=== PATIENT | female | born 1930 | race Caucasian/White ===

== ENCOUNTER 2016-12-31 07:18 | Day surgery (SDC) | payer MEDICARE, OTHER ==
[2016-12-31] MEDS ORDERED: Dexamethasone 4 MG/ML 5 ML MDV IVPUSH ONE (07:19)
[2016-12-31] MEDS ORDERED: fentaNYL 100 MCG/2 ML SDV IV ONE (07:19)
[2016-12-31] MEDS ORDERED: Propofol 200 MG/20 ML SDV IV ONE (07:19)
[2016-12-31] MEDS ORDERED: Neostigmine Methylsulfate 10 MG/10 ML MDV IVPUSH ONE (07:19)
[2016-12-31] MEDS ORDERED: Ondansetron 4 MG/2 ML SDV IVPUSH ONE (07:19)
[2016-12-31] MEDS ORDERED: Rocuronium 50 MG/5 ML Vial IV ONE (07:19)
[2016-12-31] MEDS ORDERED: ePHEDrine 50 MG/ML SDV IV ONE (07:19)
[2016-12-31] MEDS ORDERED: Glycopyrrolate 0.2 MG/ML 5 ML MDV IV ONE (07:19)
[2016-12-31] MEDS ORDERED: Succinylcholine 200 MG/10 ML MDV IV ONE (07:19)
[2016-12-31] MEDS ORDERED: ceFAZolin 1 GM in Sodium Chloride 0.9% 50 ML IV ONE (08:30)
[2016-12-31] MEDS: Lactated Ringers 1,000 ML IV SCH ×3 (09:02→19:46)
[2016-12-31] MEDS ORDERED: Bupivacaine 0.5% 30 ML SDV INJECT ONE (09:52)
[2016-12-31] MEDS ORDERED: Lidocaine 1% with EPINEPHrine 1:100,000 20 ML MDV INJECT ONE (09:53)
[2016-12-31] MEDS ORDERED: Ondansetron 4 MG/2 ML SDV IVPUSH PRN (10:21)
[2016-12-31] MEDS ORDERED: Nitroglycerin 0.4 MG Tab.SL SL PRN (10:23)
[2016-12-31] MEDS ORDERED: Morphine 2 MG/ML Syringe IVPUSH PRN (10:24)
--- NOTE | 2016-12-31 10:26 | PCM.OPNOTE ---
- General Post-Op/Procedure Note Date of Surgery/Procedure: 12/31/16 Operative Procedure(s): lap cholecystectomy Findings: critical view obtained. Pre Op Diagnosis: gallstones and polyp Post-Op Diagnosis: Same Anesthesia Technique: General ET Tube, Local (9 ml 1 % lido with epi 0.5% buvipicaine) Primary Surgeon: August Samayoa Anesthesia Provider: Levar Griffiths Pathology: gallbladder Complications: None Condition: Good Free Text/Narrative:: see dictation.
[2016-12-31] MEDS ORDERED: fentaNYL 100 MCG/2 ML SDV IVPUSH PRN (10:29)
[2016-12-31] MEDS ORDERED: Morphine 10 MG/ML Syringe IVPUSH PRN (10:29)
[2016-12-31] MEDS ORDERED: Lactated Ringers 1,000 ML IV SCH (10:30)
[2016-12-31] MEDS ORDERED: Sodium Chloride 0.9% 10 ML Syringe FLUSH PRN (11:07)
[2016-12-31] MEDS: Acetaminophen/HYDROcodone 325-5 MG Tab PO PRN ×3 (14:30→23:36)
--- NOTE | 2016-12-31 17:48 | OR ---
DATE OF OPERATION: 12/31/2016 SURGEON: August Samayoa MD PROCEDURE PERFORMED: Laparoscopic cholecystectomy. PREOPERATIVE DIAGNOSIS: Symptomatic cholelithiasis and possible gallbladder polyp. POSTOPERATIVE DIAGNOSIS: Symptomatic cholelithiasis and possible gallbladder polyp. INDICATIONS FOR PROCEDURE: This is an 86-year-old white female, who has been having some intermittent pain, primarily in the back, in the area of the shoulder blade. She recently underwent an ultrasound which demonstrated cholelithiasis as well as a possible gallbladder polyp. Pain appeared to be colicky in nature consistent with biliary colic, and she was offered and accepted a laparoscopic cholecystectomy. INTRAOPERATIVE FINDINGS: A critical view was obtained of the gallbladder. Approximately 9 mL of 1:1 mixture of 1% lidocaine with epinephrine and 0.5% bupivacaine was used. DESCRIPTION OF OPERATION: After an excellent general anesthetic was administered, the patient was prepped and draped in the usual sterile manner. Local was used to infiltrate the area below the umbilicus. A vertical midline incision was carried out, and 2 stay sutures of 0 Vicryl were placed on either side of the midline fascia, which was then elevated. The midline fascia was then incised, and the abdominal cavity was entered. A 10.5 mm Jase trocar was inserted. The patient's abdomen was insufflated to 15 mmHg using carbon dioxide, and under direct visualization, three 5 mm ports were placed; one in the midline epigastrium and two below the mid the right costal margin, and proximal level of the anterior and midclavicular line. The gallbladder was retracted in a cephalad fashion. The infundibulum was grasped, and after taking down some attached omentum, the cystic duct and cystic artery were dissected free. Two clips were placed proximally on the cystic duct and one distally. After obtaining our critical view, 2 clips were placed proximally on the cystic artery and 1 distally, and there was a thin blood vessel that also received a small clip. These structures were then divided and the gallbladder was dissected free from the gallbladder fossa using electrocautery. The specimen was passed into the bag and delivered out through the umbilical port. The area was irrigated with some bleeding points on the gallbladder fossa controlled with electrocautery. After assuring excellent hemostasis, the trocars were removed under direct visualization to ensure that there was no bleeding in the area of the trocars. After releasing the pneumoperitoneum, the umbilical defect was closed with a [id number] 0 Vicryl, and the 2 stay sutures were tied to each other. The skin was closed with interrupted 4-0 subcu Vicryl. Steri-Strips were applied. Needle, sponge, and instrument counts were reported as correct. The patient was taken to recovery room in good condition. /[id number] /MODL
[2016-12-31] MEDS ORDERED: OXYBUTYNIN 5 MG PO SCH (21:00)
[2016-12-31] MEDS ORDERED: Metoprolol Tartrate 25 MG Tab*PTOM PO SCH (21:00)
[2017-01-01] MEDS: Acetaminophen/HYDROcodone 325-5 MG Tab PO PRN ×2 (03:05→07:18)
--- NOTE | 2017-01-01 07:12 | PCM.SURGPN ---
- General Info Date of Service: 01/01/17 POD#: 1 Functional Status: Reports: Pain Controlled, Ambulating, Urinating - Review of Systems Pulmonary: Reports: No Symptoms Cardiovascular: Reports: No Symptoms Gastrointestinal: Reports: Abdominal Pain - Patient Data Vitals - Most Recent: Last Vital Signs Temp 36.4 C 01/01/17 04:00 Pulse 74 01/01/17 04:00 Resp 18 01/01/17 04:00 BP 168/90 H 01/01/17 04:00 Pulse Ox 92 L 01/01/17 04:00 Weight - Most Recent: 65.771 kg I&O - Last 24 Hours: Intake & Output 12/31/16 01/01/17 01/01/17 22:59 06:59 14:59 Intake Total 1243 619 Output Total 250 Balance 993 619 Med Orders - Current: Current Medications Hydrocodone Bitart/Acetaminophen (Anatone 325-5 Mg) 1 tab PO Q4H PRN PRN Reason: Pain (mild 1-3) Last Admin: 01/01/17 03:05 Dose: 1 tab Lactated Ringer's (Ringers, Lactated) 1,000 mls @ 125 mls/hr IV ASDIRECTED [facility] Last Admin: 12/31/16 19:46 Dose: 125 mls/hr Lactated Ringer's (Ringers, Lactated) 1,000 mls @ 0 mls/hr IV ASDIRECTED [facility] PRN Reason: KVO Metoprolol Tartrate (Lopressor) 25 mg PO BID [facility] Last Admin: 12/31/16 21:04 Dose: 25 mg Morphine Sulfate (Morphine) 1 mg IVPUSH Q1H PRN PRN Reason: Pain Nitroglycerin (Nitrostat) 0.4 mg SL ASDIRECTED PRN PRN Reason: Chest Pain Non-Formulary Medication (Atorvastatin [Lipitor]) 40 mg PO DAILY [facility] Ondansetron HCl (Zofran) 4 mg IVPUSH Q6H PRN PRN Reason: Nausea/Vomiting Oxybutynin Chloride (Oxybutynin) 5 mg PO BID [facility] Last Admin: 12/31/16 21:04 Dose: 5 mg Sodium Chloride (Saline Flush) 10 ml FLUSH ASDIRECTED PRN PRN Reason: IV Use Last Admin: 12/31/16 11:15 Dose: 10 ml Discontinued Medications Bupivacaine HCl (Marcaine 0.5%) 12 ml INJECT .STK-MED ONE Stop: 12/31/16 09:53 Last Admin: 12/31/16 09:52 Dose: 12 ml Fentanyl (Sublimaze) 50 mcg IVPUSH Q5M PRN PRN Reason: Pain (severe 7-10) Cefazolin Sodium 1 gm/ Sodium (Chloride) 50 mls @ 200 mls/hr IV ONETIME ONE Stop: 12/31/16 08:44 Last Admin: 12/31/16 09:11 Dose: 200 mls/hr Lidocaine/Epinephrine (Xylocaine 1% With Epinephrine 1:100,000) 12 ml INJECT .STK-MED ONE Stop: 12/31/16 09:54 Last Admin: 12/31/16 09:53 Dose: 12 ml Morphine Sulfate (Morphine) 1 mg IVPUSH Q5M PRN PRN Reason: Pain (moderate 4-6) - Exam Wound/Incisions: Dressing Dry and Intact Lungs: Clear to Auscultation, Normal Respiratory Effort Cardiovascular: Regular Rate, Regular Rhythm GI/Abdominal Exam: Normal Bowel Sounds, Soft - Problem List & Annotations (1) S/P laparoscopic cholecystectomy SNOMED Code(s): 049118693, [id number], 255560641 Code(s): Z90.49 - ACQUIRED ABSENCE OF OTHER SPECIFIED PARTS OF DIGESTIVE TRACT Status: Acute Current Visit: Yes - Problem List Review Problem List Initiated/Reviewed/Updated: Yes - My Orders Last 24 Hours: Active Orders 24 hr Category Date Time Status Patient Status [ADT] Routine ADT 12/31/16 07:15 Ordered Communication Order [RC] ASDIRECTED Care 12/31/16 10:29 Active Cooling Warming Measures [RC] ASDIRECTED Care 12/31/16 10:29 Active Notify Provider [RC] PRN Care 12/31/16 10:29 Active Oxygen Therapy [RC] ASDIRECTED Care 12/31/16 10:29 Active Oxygen Therapy [RC] PRN Care 12/31/16 10:22 Active RT Incentive Spirometry [RC] Q2HWA Care 12/31/16 10:21 Active Ready for Discharge [RC] PER UNIT ROUTINE Care 01/01/17 07:11 Ordered Up With Assistance [RC] ASDIRECTED Care 12/31/16 10:21 Active Vital Signs [RC] 00,04,08,12,16,20 Care 12/31/16 10:21 Active Vital Signs [RC] PER UNIT ROUTINE Care 12/31/16 10:29 Active Clear Liquid Diet [DIET] Diet 12/31/16 Lunch Ordered Acetaminophen/HYDROcodone [Anatone 325-5 MG] Med 12/31/16 10:21 Active 1 tab PO Q4H PRN Lactated Ringers [Ringers, Lactated] 1,000 ml Med 12/31/16 07:15 Active IV ASDIRECTED Lactated Ringers [Ringers, Lactated] 1,000 ml Med 12/31/16 10:30 Active IV ASDIRECTED Metoprolol Tartrate [Lopressor] Med 12/31/16 21:00 Active 25 mg PO BID Morphine Med 12/31/16 10:24 Active 1 mg IVPUSH Q1H PRN Nitroglycerin [Nitrostat] Med 12/31/16 10:23 Active 0.4 mg SL ASDIRECTED PRN Ondansetron [Zofran] Med 12/31/16 10:21 Active 4 mg IVPUSH Q6H PRN Oxybutynin Med 12/31/16 21:00 Active 5 mg PO BID Sodium Chloride 0.9% [Saline Flush] Med 12/31/16 11:07 Active 10 ml FLUSH ASDIRECTED PRN atorvaSTATin [Lipitor] Med 01/01/17 09:00 Active 40 mg PO DAILY Convert IV to Peripheral Lock [Convert IV to Saline Oth 01/01/17 02:40 Ordered Lock] [OM.PC] Routine Patient May [OM.PC] Click to Edit Oth 12/31/16 10:29 Ordered Peripheral IV Insertion Adult [OM.PC] Routine Oth 12/31/16 07:15 Ordered Sequential Compression Device [OM.PC] Routine Oth 12/31/16 07:15 Ordered Medication Orders Hydrocodone Bitart/Acetaminophen (Anatone 325-5 Mg) 1 tab PO Q4H PRN PRN Reason: Pain (mild 1-3) Last Admin: 01/01/17 03:05 Dose: 1 tab Admin: 12/31/16 23:36 Dose: 1 tab Admin: 12/31/16 18:55 Dose: 1 tab Admin: 12/31/16 14:30 Dose: 1 tab Lactated Ringer's (Ringers, Lactated) 1,000 mls @ 125 mls/hr IV ASDIRECTED [facility] Last Admin: 12/31/16 19:46 Dose: 125 mls/hr Infusion: 12/31/16 19:06 Dose: 125 mls/hr Admin: 12/31/16 11:06 Dose: 125 mls/hr Infusion: 12/31/16 11:06 Dose: 125 mls/hr Admin: 12/31/16 09:02 Dose: 125 mls/hr Lactated Ringer's (Ringers, Lactated) 1,000 mls @ 0 mls/hr IV ASDIRECTED [facility] PRN Reason: KVO Metoprolol Tartrate (Lopressor) 25 mg PO BID [facility] Last Admin: 12/31/16 21:04 Dose: 25 mg Morphine Sulfate (Morphine) 1 mg IVPUSH Q1H PRN PRN Reason: Pain Nitroglycerin (Nitrostat) 0.4 mg SL ASDIRECTED PRN PRN Reason: Chest Pain Non-Formulary Medication (Atorvastatin [Lipitor]) 40 mg PO DAILY [facility] Ondansetron HCl (Zofran) 4 mg IVPUSH Q6H PRN PRN Reason: Nausea/Vomiting Oxybutynin Chloride (Oxybutynin) 5 mg PO BID [facility] Last Admin: 12/31/16 21:04 Dose: 5 mg Sodium Chloride (Saline Flush) 10 ml FLUSH ASDIRECTED PRN PRN Reason: IV Use Last Admin: 12/31/16 11:15 Dose: 10 ml - Assessment Assessment (Free Text/Narrative):: ready for discharge. - Plan Plan (Free Text/Narrative):: see d/c plan
[2017-01-01 07:39] VITALS: BP 155/95
[2017-01-01] MEDS ORDERED: Non-Formulary Medication 1 Each (Atorvastatin [Lipitor] 40 MG) PO SCH (09:00)
== END 2017-01-01 11:05 ==
LOC: FB.SDS 07:18 → UNDOFXSDCACCOM 10:50 → FB.SDS 10:50 → FB.MS 10:50 → FB.SDS 01-01 11:05
PROVIDERS: ATTEND Surgery
DX: K80.10 Calculus of gallbladder with chronic cholecystitis without obstruction (principal); Z88.6 Allergy status to analgesic agent; M81.0 Age-related osteoporosis without current pathological fracture; I25.2 Old myocardial infarction; Z96.651 Presence of right artificial knee joint; Z90.710 Acquired absence of both cervix and uterus; Z98.890 Other specified postprocedural states; Z79.899 Other long term (current) drug therapy
CPT/HCPCS: 00790; 47562; 88304; 94150; A9270; J0330; J0690; J1100; J2405; J2704; J2710; J3010; J7050; J7120

== ENCOUNTER 2018-10-03 19:49 | Observation (INO) | payer MEDICARE, OTHER ==
[2018-10-03] MEDS ORDERED: Metoprolol Succinate 25 MG Tab.ER PO ONE (20:35)
[2018-10-03] MEDS ORDERED: Sodium Chloride 0.9% 10 ML Syringe FLUSH PRN (20:37)
--- NOTE | 2018-10-03 20:43 | EDM.PDOC ---
ED HPI GENERAL MEDICAL PROBLEM - General Chief Complaint: Cardiovascular Problem Stated Complaint: CHEST PAIN,SOB Time Seen by Provider: 10/03/18 20:25 Source of Information: Reports: Patient, Family, Old Records History Limitations: Reports: No Limitations - History of Present Illness INITIAL COMMENTS - FREE TEXT/NARRATIVE: Megha comes into [facility] ED with a recent hx of anterior retrosternal chest pain episodes x 3 since September 21. Sxs were spontaneous, retrosternal, with radiation around the R side of thorax to the back. Pain is characterized as a pressure sensation, with cool sweats, some SOB, and fatigue. There has been no lt headiness, nausea, belching, palpitations, or LOC. She took TNG x 3 for first episode, TNG x 3 for second episode 4 days ago, and TNG x 2 after dinner this evening with resolution of sxs. She has not communicated with her PCP during this interval. Megha also reports at least 3 episodes of similar pain over the past year that was managed with a single dose of TNG. Of interest is a PMH of CAD, status post PTCA x 2 stents about 4 years ago at [facility]. She has been med compliant, and is on Plavix. - Related Data Allergies Allergy/AdvReac Type Severity Reaction Status Date / Time NSAIDS (Non-Steroidal Allergy UNKNOWN Verified 12/31/16 07:51 Anti-Inflamma Home Meds: Home Meds Ascorbic Acid [Vitamin C] 500 mg PO DAILY 07/29/13 [History] Calcium Carbonate/Vitamin D3 [Caltrate 600+D 1500 MG-400 Units] 1 tab PO DAILY 07/29/13 [History] Clopidogrel [Plavix] 75 mg PO DAILY 07/29/13 [History] Metoprolol Tartrate [Lopressor] 25 mg PO BID 07/29/13 [History] Multivitamin [Multivitamins] 1 cap PO DAILY 07/29/13 [History] atorvaSTATin [Lipitor] 40 mg PO DAILY 07/29/13 [History] Aspirin 325 mg PO DAILY 02/06/15 [History] Nitroglycerin [Nitrostat] 0.4 mg SL ASDIRECTED PRN 02/06/15 [History] Cholecalciferol (Vitamin D3) [Vitamin D3] 1,000 unit PO DAILY 10/23/15 [History] Oxybutynin 5 mg PO BID 10/23/15 [History] Acetaminophen/HYDROcodone [[place] 325-5 MG] 1 tab PO Q4H PRN #30 tablet 01/01/17 [Rx] Past Medical History HEENT History: Reports: Cataract Other HEENT History: Cataract surgery this year, 2015 Cardiovascular History: Reports: Angina, Blood Clots/VTE/DVT, Heart Failure, High Cholesterol, SC, Prior Cardiac Arrest, PTCA, Stents Respiratory History: Reports: None Gastrointestinal History: Reports: None Genitourinary History: Reports: UTI, Recurrent Other Genitourinary History: over active bladder history of UTI Other [employer] CON[employer]CT History: HYSTERECTOMY Other Musculoskeletal History: back pain with curved spine... 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 Neurological History: Reports: CVA Hematologic History: Reports: None Immunologic History: Reports: None - Infectious Disease History Infectious Disease History: Reports: Chicken Pox, Measles, Scarlet Fever - Past Surgical History HEENT Surgical History: Reports: Cataract Surgery Cardiovascular Surgical History: Reports: Coronary Artery Stent GI Surgical History: Reports: None Female Surgical History: Reports: Hysterectomy Endocrine Surgical History: Reports: None Neurological Surgical History: Reports: None Musculoskeletal Surgical History: Reports: Knee Replacement Oncologic Surgical History: Reports: None Dermatological Surgical History: Reports: None Social & Family History - Family History HEENT: Reports: None Cardiac: Reports: None Respiratory: Reports: None GI: Reports: None : Reports: None Psychiatric: Reports: None Endocrine/Metabolic: Reports: None Hematologic: Reports: None Oncologic: Reports: Pancreatic, Other (See Below) Other Oncologic Family History: Mother. - Caffeine Use Caffeine Use: Reports: Coffee ED ROS GENERAL - Review of Systems Review Of Systems: See Below Constitutional: Reports: Fatigue (with chest pain episodes ) HEENT: Reports: No Symptoms Respiratory: Reports: No Symptoms Cardiovascular: Reports: Chest Pain Endocrine: Reports: No Symptoms GI/Abdominal: Reports: No Symptoms : Reports: No Symptoms Musculoskeletal: Reports: No Symptoms Skin: Reports: No Symptoms Neurological: Reports: No Symptoms Psychiatric: Reports: No Symptoms Hematologic/Lymphatic: Reports: No Symptoms Immunologic: Reports: No Symptoms ED EXAM, GENERAL - Physical Exam Exam: See Below Exam Limited By: No Limitations General Appearance: Alert, WD/WN, No Apparent Distress Eye Exam: Bilateral Eye: EOMI, Normal Inspection, PERRL Ears: Normal External Exam Nose: Normal Inspection Throat/Mouth: Normal Inspection, Normal Oropharynx, Other (some ecchymoses from oral surgery) Head: Normocephalic Neck: Normal Inspection, Supple, Non-Tender Respiratory/Chest: No Respiratory Distress, Lungs Clear, No Accessory Muscle Use , Chest Non-Tender Cardiovascular: Normal Peripheral Pulses, Regular Rate, Rhythm, No Edema, No JVD , No Murmur GI/Abdominal: Normal Bowel Sounds, Soft, Non-Tender, No Organomegaly, No Distention, No Mass (Female) Exam: Deferred Rectal (Female) Exam: Deferred Back Exam: Normal Inspection Extremities: Normal Inspection Neurological: Alert, Oriented, CN II-XII Intact, Normal Cognition, No Motor/ Sensory Deficits Psychiatric: Normal Affect, Normal Mood Skin Exam: Warm, Intact, Normal Color Lymphatic: No Adenopathy Course - Vital Signs Text/Narrative:: Following assessment, Megha was advised to take an additional Metoprolol 25 mg for elevated BP pending results of screening labs: chest x ray no change, ekg noted NSR with LBBB, CBC and CMP baseline, DDimer satisfactory, Troponin I < 0.017. I discussed case with Shruthi Caputo [employer] Stocker and Osiel Rosario Hospitalist at [facility] who suggested serial Troponins and call back for follow up in the am. Patient and son are in agreement with the COA. Last Recorded V/S: Last Vital Signs Temp Pulse 68 10/03/18 20:48 Resp BP 174/95 H 10/03/18 20:48 Pulse Ox - Orders/Labs/Meds Orders: Active Orders 24 hr Category Date Time Status EKG Documentation Completion [RC] ASDIRECTED Care 10/03/18 20:37 Active Chest 1V Frontal [CR] Stat Exams 10/03/18 20:36 Taken Sodium Chloride 0.9% [Saline Flush] Med 10/03/18 20:37 Active 10 ml FLUSH ASDIRECTED PRN Peripheral IV Insertion Adult [OM.PC] Routine Oth 10/03/18 20:37 Ordered EKG 12 Lead [EK] Routine Ther 10/03/18 20:36 Ordered Medication Orders Sodium Chloride (Saline Flush) 10 ml FLUSH ASDIRECTED PRN PRN Reason: Keep Vein Open Last Admin: 10/03/18 21:11 Dose: 10 ml Labs: Laboratory Tests 10/03/18 10/03/1819 Range/Units 20:46 20:46 20:46 WBC 4.8 (4.5-12.0) X10-3/uL RBC 4.20 (3.23-5.20) x10(6)uL Hgb 13.4 (11.5-15.5) g/dL Hct 40.3 (30.0-51.3) % MCV 96.1 H (80-96) fL MCH 31.9 (27.7-33.6) pg MCHC 33.2 (32.2-35.4) g/dL RDW 12.8 (11.5-15.5) % Plt Count 105 L (125-369) X10(3)uL MPV 8.3 (7.4-10.4) fL Neut % (Auto) 55.2 (46-82) % Lymph % (Auto) 25.5 (13-37) % Tompkins % (Auto) 15.6 H (4-12) % Eos % (Auto) 3 (1.0-5.0) % Baso % (Auto) 1 (0-2) % Neut # (Auto) 2.7 (1.6-8.3) # Lymph # (Auto) 1.2 (0.6-5.0) # Tompkins # (Auto) 0.8 (0.0-1.3) # Eos # (Auto) 0.1 (0.0-0.8) # Baso # (Auto) 0.0 (0.0-0.2) # D-Dimer, Quantitative 0.27 (0.0-0.59) mg/LFEU Sodium 138 (135-145) mmol/L Potassium 3.8 (3.5-5.3) mmol/L Chloride 101 (100-110) mmol/L Carbon Dioxide 30 (21-32) mmol/L BUN 14 (7-18) mg/dL Creatinine 0.8 (0.55-1.02) mg/dL Est Cr Clr Drug Dosing TNP Estimated GFR (MDRD) > 60 (>60) BUN/Creatinine Ratio 17.5 (9-20) Glucose 101 (80-116) mg/dL Calcium 9.2 (8.6-10.2) mg/dL Total Bilirubin 0.6 (0.1-1.3) mg/dL AST 22 (5-25) IU/L ALT 22 (12-36) U/L Alkaline Phosphatase 79 (56-112) IU/L Troponin I (<0.017-0.056) ng/mL Total Protein 7.3 (6.0-8.0) g/dL Albumin 3.6 (3.2-4.6) g/dL Globulin 3.7 g/dL Albumin/Globulin Ratio 1.0 / Range/Units 20:46 WBC (4.5-12.0) X10-3/uL RBC (3.23-5.20) x10(6)uL Hgb (11.5-15.5) g/dL Hct (30.0-51.3) % MCV (80-96) fL MCH (27.7-33.6) pg MCHC (32.2-35.4) g/dL RDW (11.5-15.5) % Plt Count (125-369) X10(3)uL MPV (7.4-10.4) fL Neut % (Auto) (46-82) % Lymph % (Auto) (13-37) % Tompkins % (Auto) (4-12) % Eos % (Auto) (1.0-5.0) % Baso % (Auto) (0-2) % Neut # (Auto) (1.6-8.3) # Lymph # (Auto) (0.6-5.0) # Tompkins # (Auto) (0.0-1.3) # Eos # (Auto) (0.0-0.8) # Baso # (Auto) (0.0-0.2) # D-Dimer, Quantitative (0.0-0.59) mg/LFEU Sodium (135-145) mmol/L Potassium (3.5-5.3) mmol/L Chloride (100-110) mmol/L Carbon Dioxide (21-32) mmol/L BUN (7-18) mg/dL Creatinine (0.55-1.02) mg/dL Est Cr Clr Drug Dosing Estimated GFR (MDRD) (>60) BUN/Creatinine Ratio (9-20) Glucose (80-116) mg/dL Calcium (8.6-10.2) mg/dL Total Bilirubin (0.1-1.3) mg/dL AST (5-25) IU/L ALT (12-36) U/L Alkaline Phosphatase (56-112) IU/L Troponin I < 0.017 L (<0.017-0.056) ng/mL Total Protein (6.0-8.0) g/dL Albumin (3.2-4.6) g/dL Globulin g/dL Albumin/Globulin Ratio Meds: Medications Generic Name Dose Route Start Last Admin Trade Name Freq PRN Reason Stop Dose Admin Sodium Chloride 10 ml 10/03/18 20:37 10/03/18 21:11 Saline Flush FLUSH 10 ml ASDIRECTED PRN Administration Keep Vein Open Discontinued Medications Generic Name Dose Route Start Last Admin Trade Name Freq PRN Reason Stop Dose Admin Metoprolol Succinate 25 mg 10/03/18 20:35 10/03/18 20:48 Toprol Xl PO 10/03/18 20:36 25 mg ONETIME ONE Administration Departure - Departure Time of Disposition: 23:05 Disposition: Refer to Observation Condition: Good Clinical Impression: Angina Referrals: Jeremy Rosales MD [Primary Care Provider] - Forms: ED Department Discharge - Problem List & Annotations (1) Angina SNOMED Code(s): 613230328 Code(s): I20.9 - ANGINA PECTORIS, UNSPECIFIED Status: Acute Current Visit : Yes Annotation/Comment:: Case discussed with hospitalist and metal mixer at [facility], and she will be admitted to Observation for serial troponins and disposition tomorrow. - Problem List Review Problem List Initiated/Reviewed/Updated: Yes - My Orders Last 24 Hours: My Active Orders 10/03/18 20:36 Chest 1V Frontal [CR] Stat EKG 12 Lead [EK] Routine 10/03/18 20:37 EKG Documentation Completion [RC] ASDIRECTED Sodium Chloride 0.9% [Saline Flush] 10 ml FLUSH ASDIRECTED PRN Peripheral IV Insertion Adult [OM.PC] Routine - Assessment/Plan Last 24 Hours: My Active Orders 10/03/18 20:36 Chest 1V Frontal [CR] Stat EKG 12 Lead [EK] Routine 10/03/18 20:37 EKG Documentation Completion [RC] ASDIRECTED Sodium Chloride 0.9% [Saline Flush] 10 ml FLUSH ASDIRECTED PRN Peripheral IV Insertion Adult [OM.PC] Routine Plan: Hospitalist to assume care in the am.
[2018-10-03] MEDS ORDERED: hydrALAZINE 20 MG/ML SDV IVPUSH ONE (22:27)
[2018-10-04] MEDS: Acetaminophen 650 MG Tab.ER PO PRN ×2 (01:04→05:34)
[2018-10-04 06:54] VITALS: BP 168/100
--- NOTE | 2018-10-04 10:44 | PCM.HP ---
H&P History of Present Illness - General Date of Service: 10/04/18 Admit Problem/Dx: Admission Diagnosis/Problem Admission Diagnosis/Problem Angina Source of Information: Patient - History of Present Illness Initial Comments - Free Text/Narative: 87-year-old female complaining of intermittent chest pain last 2 weeks. It's on the right side of the chest going back to the back relieved by nitroglycerin. She also feels more fatigued than usual and short of breath at times. She does have a history of coronary disease and had stents placed in 2013 she has no fever or chills Generalized Pain Score (Numeric/FACES): 4 - Related Data Allergies/Adverse Reactions: Allergies Allergy/AdvReac Type Severity Reaction Status Date / Time NSAIDS (Non-Steroidal Allergy UNKNOWN Verified 12/31/16 07:51 Anti-Inflamma Home Medications: Home Meds Ascorbic Acid [Vitamin C] 500 mg PO DAILY 07/29/13 [History] Calcium Carbonate/Vitamin D3 [Caltrate 600+D 1500 MG-400 Units] 1 tab PO DAILY 07/29/13 [History] Clopidogrel [Plavix] 75 mg PO DAILY 07/29/13 [History] Metoprolol Tartrate [Lopressor] 25 mg PO BID 07/29/13 [History] Multivitamin [Multivitamins] 1 cap PO DAILY 07/29/13 [History] atorvaSTATin [Lipitor] 40 mg PO DAILY 07/29/13 [History] Aspirin 325 mg PO DAILY 02/06/15 [History] Nitroglycerin [Nitrostat] 0.4 mg SL ASDIRECTED PRN 02/06/15 [History] Cholecalciferol (Vitamin D3) [Vitamin D3] 1,000 unit PO DAILY 10/23/15 [History] Oxybutynin 5 mg PO BID 10/23/15 [History] Acetaminophen [Tylenol Arthritis] 650 mg PO Q4H PRN 10/03/18 [History] [place]-3 Fatty Acids/Fish Oil [[place]-3 Fish Oil 1,000 mg Sfgl] 1,000 mg PO DAILY 10/03/18 [History] Past Medical History HEENT History: Reports: Cataract Other HEENT History: Cataract surgery this year, 2016 Cardiovascular History: Reports: Angina, Blood Clots/VTE/DVT, Heart Failure, High Cholesterol, [place], Prior Cardiac Arrest, PTCA, Stents Respiratory History: Reports: None Gastrointestinal History: Reports: Cholelithiasis Genitourinary History: Reports: UTI, Recurrent Other Genitourinary History: over active bladder history of UTI Other OB/BYN History: HYSTERECTOMY Other Musculoskeletal History: back pain with curved spine... 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 Neurological History: Reports: CVA Hematologic History: Reports: None Immunologic History: Reports: None - Infectious Disease History Infectious Disease History: Reports: Chicken Pox, Measles, Scarlet Fever - Past Surgical History HEENT Surgical History: Reports: Cataract Surgery Cardiovascular Surgical History: Reports: Coronary Artery Stent GI Surgical History: Reports: Cholecystectomy Female Surgical History: Reports: Hysterectomy Endocrine Surgical History: Reports: None Neurological Surgical History: Reports: None Musculoskeletal Surgical History: Reports: Knee Replacement, Other (See Below) Other Musculoskeletal Surgeries/Procedures:: x 2 Oncologic Surgical History: Reports: None Dermatological Surgical History: Reports: None Social & Family History - Family History Family Medical History: Noncontributory HEENT: Reports: None Cardiac: Reports: None Respiratory: Reports: None GI: Reports: None : Reports: None Psychiatric: Reports: None Endocrine/Metabolic: Reports: None Hematologic: Reports: None Oncologic: Reports: Pancreatic, Other (See Below) Other Oncologic Family History: Mother. - Tobacco Use Smoking Status *Q: Former Smoker Years of Tobacco use: 40 Packs/Tins Daily: 1 Used Tobacco, but Quit: Yes Month/Year Tobacco Last Used: unknown Second Hand Smoke Exposure: No - Caffeine Use Caffeine Use: Reports: Coffee Other Caffeine Use: 3 cups a day - Alcohol Use Days Per Week of Alcohol Use: 1 Number of Drinks Per Day: 2 Total Drinks Per Week: 2 Date of Last Drink: 09/25/18 Time of Last Drink: 20:00 - Recreational Drug Use Recreational Drug Use: No H&P Review of Systems - Review of Systems: Review Of Systems: ROS reveals no pertinent complaints other than HPI. Exam - Exam Exam: See Below - Vital Signs Vital Signs: Last Vital Signs Temp 97.9 F 10/04/18 03:09 Pulse 82 10/04/18 06:53 Resp 17 10/04/18 06:53 BP 168/100 H 10/04/18 06:53 Pulse Ox 95 10/04/18 06:53 Weight: 64.954 kg - Exam General: Alert, Oriented, 4 HEENT: PERRLA, Hearing Intact, Mucosa Moist & [place], Nares Patent, Normal Nasal Septum, Posterior Pharynx Clear, Conjunctiva Clear, EOMI, EACs Clear, TMs Clear Neck: Supple, Trachea Midline, 2 Lungs: Clear to Auscultation, Normal Respiratory Effort Cardiovascular: Regular Rate, Regular Rhythm GI/Abdominal Exam: Normal Bowel Sounds, Soft, Non-Tender, No Organomegaly, No Distention, No Abnormal Bruit, No Mass, Pelvis Stable (Female) Exam: Deferred Rectal (Female) Exam: Deferred Back Exam: Normal Inspection, Full Range of Motion, NT Extremities: Normal Inspection, Normal Range of Motion, Non-Tender, No Pedal Edema, Normal Capillary Refill Skin: Warm, Dry, Intact Neurological: Cranial Nerves Intact, Reflexes Equal Bilateral Neuro Extensive - Mental Status: Alert, Oriented x3, Normal Mood/Affect, Normal Cognition Neuro Extensive - Motor, Sensory, Reflexes: CN II-XII Intact, Normal Gait, Normal Reflexes Psychiatric: Alert, Normal Affect, Normal Mood - Patient Data Lab Results Last 24 hrs: Laboratory Results - last 24 hr 10/03/18 10/03/18 10/03/18 Range/Units 20:46 20:46 20:46 WBC 4.8 (4.5-12.0) X10-3/uL RBC 4.20 (3.23-5.20) x10(6)uL Hgb 13.4 (11.5-15.5) g/dL Hct 40.3 (30.0-51.3) % MCV 96.1 H (80-96) fL MCH 31.9 (27.7-33.6) pg MCHC 33.2 (32.2-35.4) g/dL RDW 12.8 (11.5-15.5) % Plt Count 105 L (125-369) X10(3)uL MPV 8.3 (7.4-10.4) fL Neut % (Auto) 55.2 (46-82) % Lymph % (Auto) 25.5 (13-37) % [place] % (Auto) 15.6 H (4-12) % Eos % (Auto) 3 (1.0-5.0) % Baso % (Auto) 1 (0-2) % Neut # (Auto) 2.7 (1.6-8.3) # Lymph # (Auto) 1.2 (0.6-5.0) # [place] # (Auto) 0.8 (0.0-1.3) # Eos # (Auto) 0.1 (0.0-0.8) # Baso # (Auto) 0.0 (0.0-0.2) # D-Dimer, Quantitative 0.27 (0.0-0.59) mg/LFEU Sodium 138 (135-145) mmol/L Potassium 3.8 (3.5-5.3) mmol/L Chloride 101 (100-110) mmol/L Carbon Dioxide 30 (21-32) mmol/L BUN 14 (7-18) mg/dL Creatinine 0.8 (0.55-1.02) mg/dL Est Cr Clr Drug Dosing TNP Estimated GFR (MDRD) > 60 (>60) BUN/Creatinine Ratio 17.5 (9-20) Glucose 101 (80-116) mg/dL Calcium 9.2 (8.6-10.2) mg/dL Total Bilirubin 0.6 (0.1-1.3) mg/dL AST 22 (5-25) IU/L ALT 22 (12-36) U/L Alkaline Phosphatase 79 (56-112) IU/L Troponin I (<0.017-0.056) ng/mL Total Protein 7.3 (6.0-8.0) g/dL Albumin 3.6 (3.2-4.6) g/dL Globulin 3.7 g/dL Albumin/Globulin Ratio 1.0 10/03/18 10/04/18 Range/Units 20:46 04:18 WBC (4.5-12.0) X10-3/uL RBC (3.23-5.20) x10(6)uL Hgb (11.5-15.5) g/dL Hct (30.0-51.3) % MCV (80-96) fL MCH (27.7-33.6) pg MCHC (32.2-35.4) g/dL RDW (11.5-15.5) % Plt Count (125-369) X10(3)uL MPV (7.4-10.4) fL Neut % (Auto) (46-82) % Lymph % (Auto) (13-37) % [place] % (Auto) (4-12) % Eos % (Auto) (1.0-5.0) % Baso % (Auto) (0-2) % Neut # (Auto) (1.6-8.3) # Lymph # (Auto) (0.6-5.0) # [place] # (Auto) (0.0-1.3) # Eos # (Auto) (0.0-0.8) # Baso # (Auto) (0.0-0.2) # D-Dimer, Quantitative (0.0-0.59) mg/LFEU Sodium (135-145) mmol/L Potassium (3.5-5.3) mmol/L Chloride (100-110) mmol/L Carbon Dioxide (21-32) mmol/L BUN (7-18) mg/dL Creatinine (0.55-1.02) mg/dL Est Cr Clr Drug Dosing Estimated GFR (MDRD) (>60) BUN/Creatinine Ratio (9-20) Glucose (80-116) mg/dL Calcium (8.6-10.2) mg/dL Total Bilirubin (0.1-1.3) mg/dL AST (5-25) IU/L ALT (12-36) U/L Alkaline Phosphatase (56-112) IU/L Troponin I < 0.017 L < 0.017 L (<0.017-0.056) ng/mL Total Protein (6.0-8.0) g/dL Albumin (3.2-4.6) g/dL Globulin g/dL Albumin/Globulin Ratio Result Diagrams: 10/03/18 20:46 10/03/18 20:46 - Problem List (1) Angina SNOMED Code(s): 821224009 ICD Code: I20.9 - ANGINA PECTORIS, UNSPECIFIED Status: Acute Current Visit: Yes Problem List Initiated/Reviewed/Updated: Yes Orders Last 24hrs: Active Orders 24 hr Category Date Time Status Admission Status [Patient Status] [ADT] Routine ADT 10/04/18 00:34 Active Bedrest Bathroom Privileges [RC] ASDIRECTED Care 10/03/18 23:09 Active Cardiac Monitoring [RC] CONTINUOUS Care 10/03/18 23:11 Active Height and Weight [RC] UPON Care 10/03/18 23:09 Active Oxygen Therapy [RC] PRN Care 10/03/18 23:09 Inactive VTE/DVT Education [RC] Per Unit Routine Care 10/03/18 23:09 Inactive Vital Signs [RC] Q4H Care 10/03/18 23:09 Active Regular Diet [DIET] Diet 10/04/18 Breakfast Ordered Chest 1V Frontal [CR] Stat Exams 10/03/18 20:36 Taken Acetaminophen [Tylenol Arthritis Pain] Med 10/03/18 23:31 Active 650 mg PO Q4H PRN Sodium Chloride 0.9% [Saline Flush] Med 10/03/18 20:37 Active 10 ml FLUSH ASDIRECTED PRN Peripheral IV Insertion Adult [OM.PC] Routine Oth 10/03/18 20:37 Ordered Resuscitation Status Routine Resus Stat 10/03/18 23:09 Ordered EKG 12 Lead [EK] Routine Ther 10/03/18 20:36 Ordered Medication Orders Acetaminophen (Tylenol Arthritis Pain) 650 mg PO Q4H PRN PRN Reason: Pain Last Admin: 10/04/18 05:34 Dose: 650 mg Admin: 10/04/18 01:04 Dose: 650 mg Sodium Chloride (Saline Flush) 10 ml FLUSH ASDIRECTED PRN PRN Reason: Keep Vein Open Last Admin: 10/03/18 21:11 Dose: 10 ml Assessment/Plan Comment:: This morning she is asymptomatic. EKG is negative, troponin negative 2. Will discharge her home ;continue her regular medications at home see Dr. Rosales on Friday to discuss possibly a stress test the next couple of days
--- NOTE | 2018-10-06 11:15 | CR ---
INDICATION: Angina. CHEST: An AP upright view of the chest 10/03/18 was compared with 11/10/15 and 06/11/13. The heart appears to be at the upper limits of normal in size or slightly enlarged. The aorta is tortuous with minimal calcification in the arch. Overlying EKG leads are noted. Heavy markings are noted at the lung bases, making it difficult to exclude minimal patchy bronchopneumonia. However, they may simply represent fibrosis. No consolidating pneumonia or effusion was seen. No definite evidence of CHF was seen. IMPRESSION: 1. No definite acute process but cannot exclude patchy bronchopneumonia at the lung bases, especially right costophrenic angle area. 2. ASHD. 3. Mild dextroconcave scoliosis lower middle thoracic spine. MTDD
== END 2018-10-04 11:45 | disposition home or self-care (01) ==
LOC: FB.ED 19:49 → FB.MS 23:08
PROVIDERS: ADMIT Family Medicine; ATTEND Family Medicine
DX: I20.9 Angina pectoris, unspecified (principal); I50.9 Heart failure, unspecified; I25.2 Old myocardial infarction; E78.00 Pure hypercholesterolemia, unspecified; Z87.891 Personal history of nicotine dependence; Z86.73 Personal history of transient ischemic attack (TIA), and cerebral infarction without residual deficits; Z88.6 Allergy status to analgesic agent; Z79.02 Long term (current) use of antithrombotics/antiplatelets; Z79.82 Long term (current) use of aspirin; Z79.899 Other long term (current) drug therapy; Z95.5 Presence of coronary angioplasty implant and graft
CPT/HCPCS: 36415; 71045; 80053; 84484; 85025; 85379; 93005; 99285; A9270; 93010; G0378

== ENCOUNTER 2018-10-18 04:51 | Emergency (ER) | payer MEDICARE, OTHER ==
[2018-10-18 05:11] VITALS: BP 183/72
--- NOTE | 2018-10-18 07:26 | EDM.PDOC ---
ED HPI GENERAL MEDICAL PROBLEM - General Chief Complaint: General Stated Complaint: WEAKNESS Time Seen by Provider: 10/18/18 05:15 Source of Information: Reports: Patient, Family History Limitations: Reports: No Limitations - History of Present Illness INITIAL COMMENTS - FREE TEXT/NARRATIVE: brought here by son after she returned from [place] and was feeling weak all over. She reports feeling short of breath, funny feeling in her legs like she would fall, thinks it lasted about 45 min. No chest pain, but took a nitro which seemed to make things worse for a minute or two. Mild nausea and briefly felt clammy, maybe no longer than a minute. Has otherwise been well, no fever, no cough, no chest pressure or dyspnea on exertion, no headaches, balance problems or numbness/tingling. History of both stroke and ND, no residual deficits, recently started on new BP med with nitrogen, no other medication changes. Occasionally short of breath in the AM, which is chronic. Denies any symptoms at this time. No headache, vision changes, ringing in ears, numbness, tingling or weakness in hands, gait normal per son, no chest pain, nausea, fever , chills, sweats, pleuritic chest pain, cough. No leg swelling. - Related Data Allergies Allergy/AdvReac Type Severity Reaction Status Date / Time NSAIDS (Non-Steroidal Allergy UNKNOWN Verified 10/18/18 22:31 Anti-Inflamma Home Meds: Home Meds Calcium Carbonate/Vitamin D3 [Caltrate 600+D 1500 MG-400 Units] 1 tab PO DAILY 07/29/13 [History] Clopidogrel [Plavix] 75 mg PO DAILY 07/29/13 [History] Metoprolol Tartrate [Lopressor] 25 mg PO BID 07/29/13 [History] Multivitamin [Multivitamins] 1 cap PO DAILY 07/29/13 [History] atorvaSTATin [Lipitor] 40 mg PO DAILY 07/29/13 [History] Nitroglycerin [Nitrostat] 0.4 mg SL ASDIRECTED PRN 02/06/15 [History] Oxybutynin 5 mg PO DAILY 10/23/15 [History] Acetaminophen [Tylenol Arthritis] 650 mg PO Q4H PRN 10/03/18 [History] [place]-3 Fatty Acids/Fish Oil [[place]-3 Fish Oil 1,000 mg Sfgl] 1,000 mg PO DAILY 10/03/18 [History] Aspirin [Halfprin] 81 mg PO DAILY 10/18/18 [History] Isosorbide Dinitrate 5 mg PO BID 10/18/18 [History] Past Medical History HEENT History: Reports: Cataract Other HEENT History: Cataract surgery this year, 2015 Cardiovascular History: Reports: Angina, Blood Clots/VTE/DVT, CAD, Heart Failure , High Cholesterol, ND, Prior Cardiac Arrest, PTCA, Stents Respiratory History: Reports: None Gastrointestinal History: Reports: Cholelithiasis Genitourinary History: Reports: UTI, Recurrent Other Genitourinary History: over active bladder history of UTI 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 Neurological History: Reports: CVA (no residual deficits) Hematologic History: Reports: None Immunologic History: Reports: None - Infectious Disease History Infectious Disease History: Reports: Chicken Pox, Measles, Scarlet Fever - Past Surgical History HEENT Surgical History: Reports: Cataract Surgery Cardiovascular Surgical History: Reports: Coronary Artery Stent GI Surgical History: Reports: Cholecystectomy Female Surgical History: Reports: Hysterectomy Endocrine Surgical History: Reports: None Neurological Surgical History: Reports: None Musculoskeletal Surgical History: Reports: Knee Replacement, Other (See Below) Other Musculoskeletal Surgeries/Procedures:: x 2 Oncologic Surgical History: Reports: None Dermatological Surgical History: Reports: None Social & Family History - Family History Family Medical History: Noncontributory HEENT: Reports: None Cardiac: Reports: None Respiratory: Reports: None GI: Reports: None : Reports: None Psychiatric: Reports: None Endocrine/Metabolic: Reports: None Hematologic: Reports: None Oncologic: Reports: Pancreatic, Other (See Below) Other Oncologic Family History: Mother. - Tobacco Use Smoking Status *Q: Former Smoker Used Tobacco, but Quit: Yes Month/Year Tobacco Last Used: 32 years ago - Caffeine Use Caffeine Use: Reports: Coffee Other Caffeine Use: 3 cups a day - Alcohol Use Alcohol Use History: Yes Alcohol Use Comment: rare social drink - Recreational Drug Use Recreational Drug Use: No - Living Situation & Occupation Living situation: Reports: Occupation: Retired Social History Comment: assisted living facility, son very close by ED ROS GENERAL - Review of Systems Review Of Systems: ROS reveals no pertinent complaints other than HPI. ED EXAM, GENERAL - Physical Exam Exam: See Below Free Text/Narrative:: Gen.: Alert, very pleasant 87-year-old female not acutely distressed. Pupils are equal and reactive, facial muscles are symmetric and she has equal sensation [id number] on her face. Throat is without erythema, mucous members are moist there is no tonsillar enlargement right face, uvula is midline, tongue is midline. No cervical lymphadenopathy. Heart is regular rate and rhythm and lungs are clear throughout with no wheezes or crackles, slightly decreased air movement in the bases. Abdomen positive bowel sounds, soft nondistended nontender. Peripheral pulses +2 bilaterally in both the upper and lower extremities and she has no lower extremity edema. Strength is equal bilaterally in both the upper and lower extremities, no pronator drift, gait appears normal. No obvious joint swelling, no skin lesions or rashes Course - Vital Signs Text/Narrative:: by history, ?episode of low BP transiently, patient on monitor, history of both stroke and ND, normal neuro exam now, BP high here and she states she normally takes her meds quite early. EKG obtained, labs ordered, will monitor. Last Recorded V/S: Last Vital Signs Temp 36.4 C 10/18/18 04:55 Pulse 90 10/18/18 04:55 Resp 20 10/18/18 04:55 BP 183/72 H 10/18/18 04:55 Pulse Ox 97 10/18/18 04:55 - Orders/Labs/Meds Labs: Laboratory Tests 10/18/18 10/18/18 10/18/18 Range/Units 05:57 06:05 06:05 WBC 5.6 (4.5-12.0) X10-3/uL RBC 4.58 (3.23-5.20) x10(6)uL Hgb 15.0 (11.5-15.5) g/dL Hct 44.9 (30.0-51.3) % MCV 98.0 H (80-96) fL MCH 32.7 (27.7-33.6) pg MCHC 33.3 (32.2-35.4) g/dL RDW 12.8 (11.5-15.5) % Plt Count 98 L (125-369) X10(3)uL MPV 8.6 (7.4-10.4) fL Neut % (Auto) 68.1 (46-82) % Lymph % (Auto) 19.5 (13-37) % [place] % (Auto) 8.2 (4-12) % Eos % (Auto) 4 (1.0-5.0) % Baso % (Auto) 1 (0-2) % Neut # (Auto) 3.8 (1.6-8.3) # Lymph # (Auto) 1.1 (0.6-5.0) # [place] # (Auto) 0.5 (0.0-1.3) # Eos # (Auto) 0.2 (0.0-0.8) # Baso # (Auto) 0.0 (0.0-0.2) # Sodium 137 (135-145) mmol/L Potassium 4.0 (3.5-5.3) mmol/L Chloride 102 (100-110) mmol/L Carbon Dioxide 27 (21-32) mmol/L BUN 11 (7-18) mg/dL Creatinine 0.7 (0.55-1.02) mg/dL Est Cr Clr Drug Dosing 46.84 mL/min Estimated GFR (MDRD) > 60 (>60) BUN/Creatinine Ratio 15.7 (9-20) Glucose 98 (80-116) mg/dL Calcium 9.4 (8.6-10.2) mg/dL Magnesium 2.1 (1.8-2.5) mg/dL Troponin I (<0.017-0.056) ng/mL C-Reactive Protein (0.5-0.9) mg/dL Urine Color Yellow (YELLOW) Urine Appearance Clear (CLEAR) Urine pH 7.0 H (5.0-6.5) Ur Specific [place] 1.010 (1.010-1.025) Urine Protein Negative (NEGATIVE) mg/dL Urine Glucose (UA) Normal (NORMAL) mg/dL Urine Ketones Negative (NEGATIVE) mg/dL Urine Occult Blood Negative (NEGATIVE) Urine Nitrite Negative (NEGATIVE) Urine Bilirubin Negative (NEGATIVE) Urine Urobilinogen Normal (NEGATIVE) mg/dL Ur Leukocyte Esterase Negative (NEGATIVE) 10/18/18 10/18/18 Range/Units 06:05 06:05 WBC (4.5-12.0) X10-3/uL RBC (3.23-5.20) x10(6)uL Hgb (11.5-15.5) g/dL Hct (30.0-51.3) % MCV (80-96) fL MCH (27.7-33.6) pg MCHC (32.2-35.4) g/dL RDW (11.5-15.5) % Plt Count (125-369) X10(3)uL MPV (7.4-10.4) fL Neut % (Auto) (46-82) % Lymph % (Auto) (13-37) % [place] % (Auto) (4-12) % Eos % (Auto) (1.0-5.0) % Baso % (Auto) (0-2) % Neut # (Auto) (1.6-8.3) # Lymph # (Auto) (0.6-5.0) # [place] # (Auto) (0.0-1.3) # Eos # (Auto) (0.0-0.8) # Baso # (Auto) (0.0-0.2) # Sodium (135-145) mmol/L Potassium (3.5-5.3) mmol/L Chloride (100-110) mmol/L Carbon Dioxide (21-32) mmol/L BUN (7-18) mg/dL Creatinine (0.55-1.02) mg/dL Est Cr Clr Drug Dosing mL/min Estimated GFR (MDRD) (>60) BUN/Creatinine Ratio (9-20) Glucose (80-116) mg/dL Calcium (8.6-10.2) mg/dL Magnesium (1.8-2.5) mg/dL Troponin I < 0.017 L (<0.017-0.056) ng/mL C-Reactive Protein < 0.2 L (0.5-0.9) mg/dL Urine Color (YELLOW) Urine Appearance (CLEAR) Urine pH (5.0-6.5) Ur Specific [place] (1.010-1.025) Urine Protein (NEGATIVE) mg/dL Urine Glucose (UA) (NORMAL) mg/dL Urine Ketones (NEGATIVE) mg/dL Urine Occult Blood (NEGATIVE) Urine Nitrite (NEGATIVE) Urine Bilirubin (NEGATIVE) Urine Urobilinogen (NEGATIVE) mg/dL Ur Leukocyte Esterase (NEGATIVE) - Re-Assessments/Exams Free Text/Narrative Re-Assessment/Exam: re-check, labs still pending, patient remains asymptomatic. Had a bit of water , states she feels totally back to normal and is interested in going home if possible, as she has spent much time in the hospital lately. No recent travel or anything which would raise suspicion for clot outside of hospitalizations. No plavix and aspirin. Reviewed recent [facility] d/c summary, very complete workup done there, negative nuclear stress test also. Free Text/Narrative Re-Assessment/Exam: labs returned within normal limits. neuro exam still normal, no events on telemetry. Patient requesting discharge home, son also feels this would be ok, she is in assisted living and they will make sure to have someone check on her. Discussed risks/benefits of awaiting second troponin; she still wants to go home. Discussed extensively signs and symptoms which would prompt need for re- evaluation and return to ER. They are in agreement with this plan and have no further questions. Departure - Departure Time of Disposition: 07:24 Disposition: Home, Self-Care 01 Clinical Impression: Weakness - Discharge Information *PRESCRIPTION DRUG MONITORING PROGRAM REVIEWED*: Not Applicable *COPY OF PRESCRIPTION DRUG MONITORING REPORT IN PATIENT JANNETH: Not Applicable Instructions: Angina Pectoris, [id number] Referrals: Jeremy Rosales MD [Primary Care Provider] - Forms: ED Department Discharge Additional Instructions: no acute abnormalities on labs, EKG, or urine testing recommend rest today, drink extra water if worsening or recurrent symptoms return to ER take medications once you get home follow up with PCP
== END 2018-10-18 07:42 | disposition home or self-care (01) ==
LOC: FB.ED 04:51
DX: R53.1 Weakness (principal)
CPT/HCPCS: 36415; 80048; 81003; 83735; 84484; 85025; 86140; 93005; 99284; 99285

== ENCOUNTER 2018-10-18 22:15 | Emergency (ER) | payer MEDICARE, OTHER ==
--- NOTE | 2018-10-18 22:33 | EDM.PDOC ---
ED HPI GENERAL MEDICAL PROBLEM - General Stated Complaint: SOB,CHEST PAIN Time Seen by Provider: 10/18/18 22:15 Source of Information: Reports: Patient, Family History Limitations: Reports: No Limitations - History of Present Illness INITIAL COMMENTS - FREE TEXT/NARRATIVE: 87 y.o.w. f came with her family to the ED because of CP/SOB. Pt was seen in this ED in AM for same when the W/A was neg an the Pt was d/c'd. Pt lived by herself and called her son to bring her back to the ed. 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 Main complaint was SOB. No trauma. No F/C no other acute med issues. BP m139/73 RR 16 Pulse ox 94 % on RA Pulse 97 Onset Date: 10/18/18 Onset Time: 05:00 Duration: Hour(s):, Intermittent Location: Reports: Chest Quality: Reports: Dull, Pressure, Same as Previous Episode Severity: Mild Improves with: Reports: None Worsens with: Reports: None Context: Reports: Other Associated Symptoms: Reports: No Other Symptoms - Related Data Allergies Allergy/AdvReac Type Severity Reaction Status Date / Time NSAIDS (Non-Steroidal Allergy UNKNOWN Verified 10/18/18 22:31 Anti-Inflamma Home Meds: Home Meds Calcium Carbonate/Vitamin D3 [Caltrate 600+D 1500 MG-400 Units] 1 tab PO DAILY 07/29/13 [History] Clopidogrel [Plavix] 75 mg PO DAILY 07/29/13 [History] Metoprolol Tartrate [Lopressor] 25 mg PO BID 07/29/13 [History] Multivitamin [Multivitamins] 1 cap PO DAILY 07/29/13 [History] atorvaSTATin [Lipitor] 40 mg PO DAILY 07/29/13 [History] Nitroglycerin [Nitrostat] 0.4 mg SL ASDIRECTED PRN 02/06/15 [History] Oxybutynin 5 mg PO DAILY 10/23/15 [History] Acetaminophen [Tylenol Arthritis] 650 mg PO Q4H PRN 10/03/18 [History] Tyler-3 Fatty Acids/Fish Oil [Tyler-3 Fish Oil 1,000 mg Sfgl] 1,000 mg PO DAILY 10/03/18 [History] Aspirin [Halfprin] 81 mg PO DAILY 10/18/18 [History] Isosorbide Dinitrate 5 mg PO BID 10/18/18 [History] Past Medical History HEENT History: Reports: Cataract Other HEENT History: Cataract surgery this year, 2015 Cardiovascular History: Reports: Angina, Blood Clots/VTE/DVT, CAD, Heart Failure , High Cholesterol, [place], Prior Cardiac Arrest, PTCA, Stents Respiratory History: Reports: None Gastrointestinal History: Reports: Cholelithiasis Genitourinary History: Reports: UTI, Recurrent Other Genitourinary History: over active bladder history of UTI 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 Neurological History: Reports: CVA Hematologic History: Reports: None Immunologic History: Reports: None - Infectious Disease History Infectious Disease History: Reports: Chicken Pox, Measles, Scarlet Fever - Past Surgical History HEENT Surgical History: Reports: Cataract Surgery Cardiovascular Surgical History: Reports: Coronary Artery Stent GI Surgical History: Reports: Cholecystectomy Female Surgical History: Reports: Hysterectomy Endocrine Surgical History: Reports: None Neurological Surgical History: Reports: None Musculoskeletal Surgical History: Reports: Knee Replacement, Other (See Below) Other Musculoskeletal Surgeries/Procedures:: x 2 Oncologic Surgical History: Reports: None Dermatological Surgical History: Reports: None Social & Family History - Family History Family Medical History: Noncontributory HEENT: Reports: None Cardiac: Reports: None Respiratory: Reports: None GI: Reports: None : Reports: None Psychiatric: Reports: None Endocrine/Metabolic: Reports: None Hematologic: Reports: None Oncologic: Reports: Pancreatic, Other (See Below) Other Oncologic Family History: Mother. - Caffeine Use Caffeine Use: Reports: Coffee Other Caffeine Use: 3 cups a day ED ROS GENERAL - Review of Systems Review Of Systems: See Below Constitutional: Reports: No Symptoms HEENT: Reports: No Symptoms Respiratory: Reports: Shortness of Breath Cardiovascular: Reports: No Symptoms Endocrine: Reports: No Symptoms GI/Abdominal: Reports: No Symptoms : Reports: No Symptoms Musculoskeletal: Reports: No Symptoms Skin: Reports: No Symptoms Neurological: Reports: No Symptoms Psychiatric: Reports: No Symptoms Hematologic/Lymphatic: Reports: No Symptoms Immunologic: Reports: No Symptoms ED EXAM, GENERAL - Physical Exam Exam: See Below Exam Limited By: No Limitations General Appearance: Alert, WD/WN, Mild Distress, Thin Eye Exam: Bilateral Eye: Normal Inspection Ears: Normal External Exam Ear Exam: Bilateral Ear: Auricle Normal Nose: Normal Inspection, Normal Mucosa, No Blood Throat/Mouth: Normal Inspection, Normal Lips, Normal Voice, No Airway Compromise Head: Atraumatic, Normocephalic Neck: Normal Inspection, Supple, Non-Tender, Full Range of Motion Respiratory/Chest: No Respiratory Distress, Lungs Clear, Normal Breath Sounds, No Accessory Muscle Use Cardiovascular: Normal Peripheral Pulses, Regular Rate, Rhythm, No Edema, No Gallop, No JVD Peripheral Pulses: 2+: Carotid (R) GI/Abdominal: Normal Bowel Sounds, Soft, Non-Tender, No Organomegaly (Female) Exam: Deferred Rectal (Female) Exam: Deferred Back Exam: Normal Inspection, Full Range of Motion Extremities: Normal Inspection, Normal Range of Motion, Non-Tender Neurological: Alert, Oriented, CN II-XII Intact, Normal Cognition, Normal Gait Psychiatric: Normal Affect, Normal Mood Skin Exam: Warm, Dry, Intact, Normal Color, No Rash, Cool Lymphatic: No Adenopathy EKG INTERPRETATION EKG Date: 10/18/18 Time: 22:15 Rhythm: NSR Rate (Beats/Min): 68 [place]: Normal P-Wave: Present QRS: Normal ST-T: Depressed QT: Normal Comparison: No Change (same as this morning at 5.04 am) Course - Vital Signs Text/Narrative:: 87 y.o.w. f came with her family to the ED because of CP/SOB. Pt was seen in this ED in AM for same when the W/A was neg an the Pt was d/c'd. Pt lived by herself and called her son to bring her back to the ed. 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 Main complaint was SOB. No trauma. No F/C no other acute med issues. BP m139/73 RR 16 Pulse ox 94 % on RA Pulse 97 PE: WNWD W F with sob Imaging: CXR : NAD Angia chest: Neg for PE Labs: CBC neg Na 132 Cl 118 Troponin 0.025 repeat, repeat Troponin was 0.0117 Impression: Atypical chest pain Tx: Solu Medrol Reexam: improved Plan: D/C with instruction Last Recorded V/S: Last Vital Signs Temp 36.4 C 10/18/18 22:42 Pulse 70 10/19/18 00:10 Resp 17 10/19/18 00:10 BP 179/92 H 10/19/18 00:20 Pulse Ox 98 10/19/18 00:10 - Orders/Labs/Meds Orders: Active Orders 24 hr Category Date Time Status EKG Documentation Completion [RC] ASDIRECTED Care 10/18/18 23:18 Active Ang Chest [CT] Stat Exams 10/18/18 23:24 Taken CXR [Chest 1V Frontal] [CR] Stat Exams 10/18/18 22:25 Taken Sodium Chloride 0.9% [Saline Flush] Med 10/18/18 22:35 Active 10 ml FLUSH ASDIRECTED PRN EKG 12 Lead [EK] Routine Ther 10/18/18 23:18 Ordered Medication Orders Sodium Chloride (Saline Flush) 10 ml FLUSH ASDIRECTED PRN PRN Reason: IV Use Last Admin: 10/18/18 22:35 Dose: 10 ml Labs: Laboratory Tests 10/18/18 10/18/18 10/18/18 Range/Units 22:37 22:37 22:37 WBC 4.7 (4.5-12.0) X10-3/uL RBC 4.05 (3.23-5.20) x10(6)uL Hgb 13.3 (11.5-15.5) g/dL Hct 38.9 (30.0-51.3) % MCV 96.0 (80-96) fL MCH 32.8 (27.7-33.6) pg MCHC 34.2 (32.2-35.4) g/dL RDW 13.2 (11.5-15.5) % Plt Count 94 L (125-369) X10(3)uL MPV 11.0 H (7.4-10.4) fL Neut % (Auto) 46.5 (46-82) % Lymph % (Auto) 35.5 (13-37) % [place] % (Auto) 13.7 H (4-12) % Eos % (Auto) 4 (1.0-5.0) % Baso % (Auto) 0 (0-2) % Neut # (Auto) 2.2 (1.6-8.3) # Lymph # (Auto) 1.7 (0.6-5.0) # [place] # (Auto) 0.6 (0.0-1.3) # Eos # (Auto) 0.2 (0.0-0.8) # Baso # (Auto) 0.0 (0.0-0.2) # PT (8.7-11.1) INR (0.89-1.13) D-Dimer, Quantitative (0.0-0.59) mg/LFEU Sodium 132 L (135-145) mmol/L Potassium 3.9 (3.5-5.3) mmol/L Chloride 98 L (100-110) mmol/L Carbon Dioxide 25 (21-32) mmol/L BUN 10 (7-18) mg/dL Creatinine 0.8 (0.55-1.02) mg/dL Est Cr Clr Drug Dosing 40.98 mL/min Estimated GFR (MDRD) > 60 (>60) BUN/Creatinine Ratio 12.5 (9-20) Glucose 118 H (80-116) mg/dL Calcium 8.8 (8.6-10.2) mg/dL Troponin I 0.025 (<0.017-0.056) ng/mL 10/18/18 10/18/18 10/19/18 Range/Units 22:37 22:37 01:48 WBC (4.5-12.0) X10-3/uL RBC (3.23-5.20) x10(6)uL Hgb (11.5-15.5) g/dL Hct (30.0-51.3) % MCV (80-96) fL MCH (27.7-33.6) pg MCHC (32.2-35.4) g/dL RDW (11.5-15.5) % Plt Count (125-369) X10(3)uL MPV (7.4-10.4) fL Neut % (Auto) (46-82) % Lymph % (Auto) (13-37) % [place] % (Auto) (4-12) % Eos % (Auto) (1.0-5.0) % Baso % (Auto) (0-2) % Neut # (Auto) (1.6-8.3) # Lymph # (Auto) (0.6-5.0) # [place] # (Auto) (0.0-1.3) # Eos # (Auto) (0.0-0.8) # Baso # (Auto) (0.0-0.2) # PT 10.1 (8.7-11.1) INR 1.04 (0.89-1.13) D-Dimer, Quantitative 2.09 H (0.0-0.59) mg/LFEU Sodium (135-145) mmol/L Potassium (3.5-5.3) mmol/L Chloride (100-110) mmol/L Carbon Dioxide (21-32) mmol/L BUN (7-18) mg/dL Creatinine (0.55-1.02) mg/dL Est Cr Clr Drug Dosing mL/min Estimated GFR (MDRD) (>60) BUN/Creatinine Ratio (9-20) Glucose (80-116) mg/dL Calcium (8.6-10.2) mg/dL Troponin I 0.017 (<0.017-0.056) ng/mL Meds: Medications Generic Name Dose Route Start Last Admin Trade Name Freq PRN Reason Stop Dose Admin Sodium Chloride 10 ml 10/18/18 22:35 10/18/18 22:35 Saline Flush FLUSH 10 ml ASDIRECTED PRN Administration IV Use Discontinued Medications Generic Name Dose Route Start Last Admin Trade Name Freq PRN Reason Stop Dose Admin Clonidine HCl 0.1 mg 10/19/18 00:18 10/19/18 00:20 Catapres PO 10/19/18 00:19 0.1 mg ONETIME ONE Administration Iopamidol 75 ml 10/19/18 00:16 10/19/18 00:24 Isovue-370 (76%) IV 10/19/18 00:17 73 ml ONETIME ONE Administration Methylprednisolone Sodium Succinate 125 mg 10/18/18 23:20 10/18/18 23:36 Solu-Medrol IVPUSH 10/18/18 23:21 125 mg ONETIME ONE Administration Departure - Departure Time of Disposition: 02:18 Disposition: Home, Self-Care 01 Condition: Good Clinical Impression: Atypical chest pain Instructions: Nonspecific Chest Pain, [id number] Referrals: Jeremy Rosales MD [Primary Care Provider] - Forms: ED Department Discharge Additional Instructions: Please cont your meds, please f/u with your PMD, please come back if your symptoms get worse acutely - My Orders Last 24 Hours: My Active Orders 10/18/18 22:25 CXR [Chest 1V Frontal] [CR] Stat 10/18/18 22:35 Sodium Chloride 0.9% [Saline Flush] 10 ml FLUSH ASDIRECTED PRN 10/18/18 23:18 EKG Documentation Completion [RC] ASDIRECTED EKG 12 Lead [EK] Routine 10/18/18 23:24 Ang Chest [CT] Stat - Assessment/Plan Last 24 Hours: My Active Orders 10/18/18 22:25 CXR [Chest 1V Frontal] [CR] Stat 10/18/18 22:35 Sodium Chloride 0.9% [Saline Flush] 10 ml FLUSH ASDIRECTED PRN 10/18/18 23:18 EKG Documentation Completion [RC] ASDIRECTED EKG 12 Lead [EK] Routine 10/18/18 23:24 Ang Chest [CT] Stat
[2018-10-18] MEDS ORDERED: Sodium Chloride 0.9% 10 ML Syringe FLUSH PRN (22:35)
[2018-10-18] MEDS ORDERED: methylPREDNISolone Sodium Succinate 125 MG/2 ML SDV IVPUSH ONE (23:20)
[2018-10-19] MEDS ORDERED: Iopamidol 755 Mg/ML 75 ML Bottle IV ONE (00:16)
[2018-10-19] MEDS ORDERED: cloNIDine 0.1 MG Tab PO ONE (00:18)
[2018-10-19 03:24] VITALS: BP 150/90
== END 2018-10-19 02:35 | disposition home or self-care (01) ==
LOC: FB.ED 22:15
DX: R07.89 Other chest pain (principal); I50.9 Heart failure, unspecified; I25.10 Atherosclerotic heart disease of native coronary artery without angina pectoris; I25.2 Old myocardial infarction; Z95.5 Presence of coronary angioplasty implant and graft; Z90.710 Acquired absence of both cervix and uterus; Z79.82 Long term (current) use of aspirin; Z79.899 Other long term (current) drug therapy; Z88.6 Allergy status to analgesic agent; Z86.73 Personal history of transient ischemic attack (TIA), and cerebral infarction without residual deficits; Z98.49 Cataract extraction status, unspecified eye; Z90.49 Acquired absence of other specified parts of digestive tract
CPT/HCPCS: 36415; 71045; 71275; 80048; 81003; 83735; 84484; 85025; 85379; 85610; 86140; 93005; 96374; 99285; A9270; J2930; Q9967

== ENCOUNTER 2018-11-22 03:53 | Observation (INO) | payer MEDICARE, OTHER ==
--- NOTE | 2018-11-22 04:17 | EDM.PDOC ---
ED HPI GENERAL MEDICAL PROBLEM - General Stated Complaint: SOB Time Seen by Provider: 11/22/18 04:10 Source of Information: Reports: Patient History Limitations: Reports: No Limitations - History of Present Illness INITIAL COMMENTS - FREE TEXT/NARRATIVE: 87-year-old female who reports that yesterday morning when she awoke and got up and was moving around, she felt pressure in her chest and some shortness of breath with weakness. She took her morning medications and in a few hours her symptoms seem to go away and she felt improved. The rest of the day she was able to walk and do things without any shortness of breath or chest pressure. She reports she even walks all the way down to supper without any problems. She had no more chest pressure or shortness of breath. No vomiting. This morning at 3 AM she woke to go to the restroom and when she got up and was going to the restroom she developed shortness of breath, weakness, generalized chest pressure without radiation and tingling in her feet. She also had some mild nausea but no vomiting. Her symptoms did not seem to go away and she called her grandson to bring her to the emergency room. Now she has no chest pressure and she denies any pain. She would rate her pain as a 0/10. She doesn't really consider the symptoms earlier as a pain so she wouldn't rate it but she did say it was moderate to severe when she was having it. No cough. No abdominal pain. She states lying down on the stretcher she feels quite a bit better. She apparently was in [place] at [place] approximately one month ago with similar symptoms and she had tests performed that did not show any definite blockages but were somewhat equivocal. There were conversations with her and her son about cardiac catheterization but the decision was to change her medication and hold off on cardiac catheterization. She has had some intermittent ongoing symptoms similar to above since that time but they seem to be getting worse. There are no other associated signs or symptoms. There are no other modifying factors. Onset: Today (3 AM) Duration: Improving (While she is lying down) Location: Reports: Chest Quality: Reports: Pressure Severity: Moderate (Earlier but 0/10 now) Improves with: Reports: Rest Worsens with: Reports: Movement Context: Reports: Other (As above) Associated Symptoms: Reports: Chest Pain (Pressure), Nausea/Vomiting, Shortness of Breath, Weakness Treatments RE[employer] PRINTER: Reports: Other (see below) (Nothing) - Related Data Allergies Allergy/AdvReac Type Severity Reaction Status Date / Time NSAIDS (Non-Steroidal Allergy UNKNOWN Verified 10/18/18 22:31 Anti-Inflamma Home Meds: Home Meds Calcium Carbonate/Vitamin D3 [Caltrate 600+D 1500 MG-400 Units] 1 tab PO DAILY 07/29/13 [History] Clopidogrel [Plavix] 75 mg PO DAILY 07/29/13 [History] Multivitamin [Multivitamins] 1 cap PO DAILY 07/29/13 [History] atorvaSTATin [Lipitor] 40 mg PO DAILY 07/29/13 [History] Nitroglycerin [Nitrostat] 0.4 mg SL ASDIRECTED PRN 02/06/15 [History] Oxybutynin 5 mg PO BID 10/23/15 [History] Acetaminophen [Tylenol Arthritis] 650 mg PO TID 10/03/18 [History] [place]-3 Fatty Acids/Fish Oil [[place]-3 Fish Oil 1,000 mg Sfgl] 1,000 mg PO DAILY 10/03/18 [History] Aspirin [Halfprin] 81 mg PO DAILY 10/18/18 [History] Isosorbide Dinitrate 10 mg PO BID 11/22/18 [History] Metoprolol Tartrate 50 mg PO DAILY 11/22/18 [History] hydrOXYzine pamoate [Vistaril] 25 mg PO TID PRN 11/22/18 [History] Past Medical History HEENT History: Reports: Cataract Other HEENT History: Cataract surgery this year, 2015 Cardiovascular History: Reports: Angina, Blood Clots/VTE/DVT, CAD, Heart Failure , High Cholesterol, [place], Prior Cardiac Arrest, PTCA, Stents Gastrointestinal History: Reports: GERD Genitourinary History: Reports: UTI, Recurrent Other Genitourinary History: over active bladder history of UTI Musculoskeletal History: Reports: Back Pain, Chronic (Scoliosis) Neurological History: Reports: CVA (no residual deficits) - Infectious Disease History Infectious Disease History: Reports: Chicken Pox, Measles, Scarlet Fever - Past Surgical History HEENT Surgical History: Reports: Cataract Surgery Cardiovascular Surgical History: Reports: Coronary Artery Stent GI Surgical History: Reports: Cholecystectomy Female Surgical History: Reports: Hysterectomy Musculoskeletal Surgical History: Reports: Knee Replacement (Bilateral) Social & Family History - Family History : Reports: None Oncologic: Reports: Pancreatic, Other (See Below) Other Oncologic Family History: Mother. - Tobacco Use Smoking Status *Q: Former Smoker (Nonsmoker since 1985.) - Caffeine Use Caffeine Use: Reports: Coffee Other Caffeine Use: 3 cups a day - Alcohol Use Alcohol Use History: Yes Alcohol Use Frequency: Rarely - Living Situation & Occupation Living situation: Reports: Assisted Living Social History Comment: She is here with her grandson. ED ROS GENERAL - Review of Systems Review Of Systems: See Below Constitutional: Reports: Malaise, Weakness HEENT: Reports: No Symptoms Respiratory: Reports: Shortness of Breath Cardiovascular: Reports: Chest Pain (Pressure) GI/Abdominal: Reports: Nausea (With this episode, now resolved) : Reports: No Symptoms Musculoskeletal: Reports: No Symptoms Skin: Reports: No Symptoms Neurological: Reports: No Symptoms Hematologic/Lymphatic: Reports: No Symptoms ED EXAM, GENERAL - Physical Exam Exam: See Below Exam Limited By: No Limitations General Appearance: Alert, WD/WN, No Apparent Distress Eye Exam: Bilateral Eye: EOMI, Normal Inspection, PERRL Ears: Normal External Exam Ear Exam: Bilateral Ear: Auricle Normal Nose: Normal Inspection, Normal Mucosa, No Blood Throat/Mouth: Normal Inspection, Normal Oropharynx, Normal Voice, No Airway Compromise Head: Atraumatic, Normocephalic Neck: Normal Inspection, Supple, Non-Tender, Full Range of Motion Respiratory/Chest: No Respiratory Distress, Lungs Clear, Normal Breath Sounds, No Accessory Muscle Use, Chest Non-Tender Cardiovascular: Normal Peripheral Pulses, Regular Rate, Rhythm, No JVD Peripheral Pulses: 2+: Radial (L), Radial (R), Dorsalis Pedis (L), Dorsalis Pedis (R) GI/Abdominal: Normal Bowel Sounds, Soft, No Mass, Tender (Mild, diffuse--she states this is normal) Back Exam: Normal Inspection Extremities: Normal Inspection, Normal Range of Motion, Non-Tender, No Pedal Edema, Normal Capillary Refill Neurological: Alert, Oriented, CN II-XII Intact, Normal Cognition, No Motor/ Sensory Deficits Skin Exam: Warm, Dry, Intact, Normal Color, No Rash EKG INTERPRETATION EKG Date: 11/22/18 Time: 03:54 Rhythm: NSR Rate (Beats/Min): 82 [place]: LAD-Left [place] Deviation (Mild) P-Wave: Present QRS: LBBB ST-T: Depressed (Inferiorly and laterally) QT: Prolonged NC/PQ Interval: Borderline prolonged NC Comparison: No Change (No change from EKG performed on 10/18/2018.) Course - Vital Signs Last Recorded V/S: Last Vital Signs Temp 36.5 C 11/22/18 03:53 Pulse 72 11/22/18 03:53 Resp 14 11/22/18 03:53 BP 176/106 H 11/22/18 03:53 Pulse Ox 96 11/22/18 03:53 - Orders/Labs/Meds Orders: Active Orders 24 hr Category Date Time Status EKG Documentation Completion [RC] ASDIRECTED Care 11/22/18 03:54 Active Chest 1V Frontal [CR] Stat Exams 11/22/18 04:56 Ordered CULTURE URINE [RM] Stat Lab 11/22/18 04:56 Received Sodium Chloride 0.9% [Saline Flush] Med 11/22/18 04:56 Active 10 ml FLUSH ASDIRECTED PRN Peripheral IV Insertion Adult [OM.PC] Routine Oth 11/22/18 04:56 Ordered EKG 12 Lead [EK] Routine Ther 11/22/18 03:54 Ordered Medication Orders Sodium Chloride (Saline Flush) 10 ml FLUSH ASDIRECTED PRN PRN Reason: Keep Vein Open Last Admin: 11/22/18 04:00 Dose: 10 ml Labs: Laboratory Tests 11/22/18 11/22/18 11/22/18 Range/Units 04:57 05:10 05:10 WBC 4.5 (4.5-12.0) X10-3/uL RBC 4.75 (3.23-5.20) x10(6)uL Hgb 14.8 (11.5-15.5) g/dL Hct 45.4 (30.0-51.3) % MCV 95.6 (80-96) fL MCH 31.1 (27.7-33.6) pg MCHC 32.6 (32.2-35.4) g/dL RDW 12.2 (11.5-15.5) % Plt Count 89 L (125-369) X10(3)uL MPV 8.5 (7.4-10.4) fL Neut % (Auto) 60.7 (46-82) % Lymph % (Auto) 22.5 (13-37) % Dare % (Auto) 13.3 H (4-12) % Eos % (Auto) 3 (1.0-5.0) % Baso % (Auto) 1 (0-2) % Neut # (Auto) 2.8 (1.6-8.3) # Lymph # (Auto) 1.0 (0.6-5.0) # Dare # (Auto) 0.6 (0.0-1.3) # Eos # (Auto) 0.1 (0.0-0.8) # Baso # (Auto) 0.0 (0.0-0.2) # Sodium 138 (135-145) mmol/L Potassium 3.9 (3.5-5.3) mmol/L Chloride 101 (100-110) mmol/L Carbon Dioxide 29 (21-32) mmol/L BUN 10 (7-18) mg/dL Creatinine 0.8 (0.55-1.02) mg/dL Est Cr Clr Drug Dosing 40.98 mL/min Estimated GFR (MDRD) > 60 (>60) BUN/Creatinine Ratio 12.5 (9-20) Glucose 96 (80-116) mg/dL Calcium 9.7 (8.6-10.2) mg/dL Magnesium 1.8 (1.8-2.5) mg/dL Total Bilirubin 1.1 (0.1-1.3) mg/dL AST 24 (5-25) IU/L ALT 24 (12-36) U/L Alkaline Phosphatase 70 (56-112) IU/L Troponin I (<0.017-0.056) ng/mL NT-Pro-B Natriuret Pep (<=450) pg/mL Total Protein 8.0 (6.0-8.0) g/dL Albumin 3.9 (3.2-4.6) g/dL Globulin 4.1 g/dL Albumin/Globulin Ratio 1.0 Urine Color Yellow (YELLOW) Urine Appearance Clear (CLEAR) Urine pH 7.0 H (5.0-6.5) Ur Specific [place] 1.005 L (1.010-1.025) Urine Protein Negative (NEGATIVE) mg/dL Urine Glucose (UA) Normal (NORMAL) mg/dL Urine Ketones Negative (NEGATIVE) mg/dL Urine Occult Blood Negative (NEGATIVE) Urine Nitrite Negative (NEGATIVE) Urine Bilirubin Negative (NEGATIVE) Urine Urobilinogen Normal (NEGATIVE) mg/dL Ur Leukocyte Esterase Small H (NEGATIVE) Urine RBC 0-5 (0-5) Urine WBC 5-10 H (0-5) Ur Squamous Epith Cells Occasional (NS,R,O) Urine Bacteria Moderate H (NS) 11/22/18 Range/Units 05:10 WBC (4.5-12.0) X10-3/uL RBC (3.23-5.20) x10(6)uL Hgb (11.5-15.5) g/dL Hct (30.0-51.3) % MCV (80-96) fL MCH (27.7-33.6) pg MCHC (32.2-35.4) g/dL RDW (11.5-15.5) % Plt Count (125-369) X10(3)uL MPV (7.4-10.4) fL Neut % (Auto) (46-82) % Lymph % (Auto) (13-37) % Dare % (Auto) (4-12) % Eos % (Auto) (1.0-5.0) % Baso % (Auto) (0-2) % Neut # (Auto) (1.6-8.3) # Lymph # (Auto) (0.6-5.0) # Dare # (Auto) (0.0-1.3) # Eos # (Auto) (0.0-0.8) # Baso # (Auto) (0.0-0.2) # Sodium (135-145) mmol/L Potassium (3.5-5.3) mmol/L Chloride (100-110) mmol/L Carbon Dioxide (21-32) mmol/L BUN (7-18) mg/dL Creatinine (0.55-1.02) mg/dL Est Cr Clr Drug Dosing mL/min Estimated GFR (MDRD) (>60) BUN/Creatinine Ratio (9-20) Glucose (80-116) mg/dL Calcium (8.6-10.2) mg/dL Magnesium (1.8-2.5) mg/dL Total Bilirubin (0.1-1.3) mg/dL AST (5-25) IU/L ALT (12-36) U/L Alkaline Phosphatase (56-112) IU/L Troponin I 0.019 (<0.017-0.056) ng/mL NT-Pro-B Natriuret Pep 441 (<=450) pg/mL Total Protein (6.0-8.0) g/dL Albumin (3.2-4.6) g/dL Globulin g/dL Albumin/Globulin Ratio Urine Color (YELLOW) Urine Appearance (CLEAR) Urine pH (5.0-6.5) Ur Specific [place] (1.010-1.025) Urine Protein (NEGATIVE) mg/dL Urine Glucose (UA) (NORMAL) mg/dL Urine Ketones (NEGATIVE) mg/dL Urine Occult Blood (NEGATIVE) Urine Nitrite (NEGATIVE) Urine Bilirubin (NEGATIVE) Urine Urobilinogen (NEGATIVE) mg/dL Ur Leukocyte Esterase (NEGATIVE) Urine RBC (0-5) Urine WBC (0-5) Ur Squamous Epith Cells (NS,R,O) Urine Bacteria (NS) Meds: Medications Generic Name Dose Route Start Last Admin Trade Name Freq PRN Reason Stop Dose Admin Sodium Chloride 10 ml 11/22/18 04:56 11/22/18 04:00 Saline Flush FLUSH 10 ml ASDIRECTED PRN Administration Keep Vein Open Discontinued Medications Generic Name Dose Route Start Last Admin Trade Name Freq PRN Reason Stop Dose Admin Aspirin 324 mg 11/22/18 04:57 11/22/18 05:00 Aspirin PO 11/22/18 04:58 324 mg ONETIME ONE Administration - Radiology Interpretation Free Text/Narrative:: Portable chest x-ray shows no acute disease. - Re-Assessments/Exams Free Text/Narrative Re-Assessment/Exam: 11/22/18 06:30: Patient is symptom free at present. She tells me that approximately 15 minutes ago she had a brief episode where she felt slightly short of breath and had some chest pressure but this lasted only for a few seconds and went away. She was taken to the bathroom will chair and did not have any symptoms when she got up to do this. She had reported prior that she had had symptoms when she got up and was active (at 3 AM today). Her chest x- ray is normal. Her EKG is unchanged. Her initial troponin was normal. Her electrolytes were normal. Her hemoglobin was normal. Her symptoms, however, are somewhat concerning for unstable angina. She will need admission with serial troponins and close cardiac monitoring for now. She has had 2-3 episodes of this shortness of breath, weakness and chest pressure over the past 24 hours. I feel she is at significant risk for re-admission if I were to send her home and would have significant morbidity associated with this. I discussed this with the patient and with her grandson and both of them are in agreement with the plans for admission here. I will place admission orders and Dr. Mckee will assume care of the patient at 7 AM today. Departure - Departure Time of Disposition: 06:35 Disposition: Refer to Observation Condition: Fair (Stable) Clinical Impression: Chest pain Qualifiers: Chest pain type: unspecified Qualified Code(s): R07.9 - Chest pain, unspecified Referrals: Jeremy Rosales MD [Primary Care Provider] - - My Orders Last 24 Hours: My Active Orders 11/22/18 03:54 EKG Documentation Completion [RC] ASDIRECTED EKG 12 Lead [EK] Routine 11/22/18 04:56 Chest 1V Frontal [CR] Stat CULTURE URINE [RM] Stat Sodium Chloride 0.9% [Saline Flush] 10 ml FLUSH ASDIRECTED PRN Peripheral IV Insertion Adult [OM.PC] Routine - Assessment/Plan Last 24 Hours: My Active Orders 11/22/18 03:54 EKG Documentation Completion [RC] ASDIRECTED EKG 12 Lead [EK] Routine 11/22/18 04:56 Chest 1V Frontal [CR] Stat CULTURE URINE [RM] Stat Sodium Chloride 0.9% [Saline Flush] 10 ml FLUSH ASDIRECTED PRN Peripheral IV Insertion Adult [OM.PC] Routine
[2018-11-22] MEDS ORDERED: Sodium Chloride 0.9% 10 ML Syringe FLUSH PRN (04:56)
[2018-11-22] MEDS ORDERED: Aspirin 81 MG Tab.Chew PO ONE (04:57)
[2018-11-22] MEDS ORDERED: Acetaminophen 325 MG Tab PO PRN (06:38)
[2018-11-22] MEDS ORDERED: Ondansetron 4 MG/2 ML SDV IV PRN (06:38)
[2018-11-22] MEDS ORDERED: Ondansetron 4 MG Tab.DIS PO PRN (06:38)
--- NOTE | 2018-11-22 07:41 | PCM.HP ---
H&P History of Present Illness - General Date of Service: 11/22/18 Admit Problem/Dx: Admission Diagnosis/Problem Admission Diagnosis/Problem Chest pain Source of Information: Patient, EMS Notes Reviewed - History of Present Illness Initial Comments - Free Text/Narative: Patient got up to go to the bathroom at 3 am this morning and developed substernal chest pressure, non-radiating, shortness of breath, nausea, weakness but no diaphoresis or vomiting. She had some tingling in her feet but has since resolved. She did take 1 nitroglycerin SL tablet after she had called her grandson to bring her to the ER. She states that it didn't really help. She continued to have the pressure on the way to ER but reported no pain/pressure after arrival to ER. EKG was unchanged from previous, old LBBB. Troponin was normal. Her blood pressure medications had recently been changed at her PCP clinic, her dose of Metoprolol 25 mg tid was changed to 50 mg daily and Imdur was increased from 5 mg bid to 10 mg tid. She was seen in [place] for similar pains a month ago, did stress test, they discussed doing angiogram but her and her son felt that was risky so they did medication management. She states that she had some chest pressure yesterday morning with shortness of breath but resolved after taking her morning medications. She also reported that her symptoms have been intermittent but increasing over the past month. She states she does get anxious and is on Vistaril 25 mg tid prn anxiety. Also noted that her kids are all out of town and her grandson is helping her. Lives in an [facility] apartment alone with assistance from her family. Onset of Symptoms: Reports: Today Symptom Onset Time: 03:00 Duration of Symptoms: Reports: Improving (resolved in ER) Location: Reports: Chest Quality: Reports: Pressure Severity: Moderate Improves with: Reports: Rest Worsens with: Reports: Movement Context: Reports: Exertion Associated Symptoms: Reports: Shortness of Breath, Other (Nausea but no vomiting ) - Related Data Allergies/Adverse Reactions: Allergies Allergy/AdvReac Type Severity Reaction Status Date / Time NSAIDS (Non-Steroidal Allergy UNKNOWN Verified 10/18/18 22:31 Anti-Inflamma Home Medications: Home Meds Calcium Carbonate/Vitamin D3 [Caltrate 600+D 1500 MG-400 Units] 1 tab PO DAILY 07/29/13 [History] Clopidogrel [Plavix] 75 mg PO DAILY 07/29/13 [History] Multivitamin [Multivitamins] 1 cap PO DAILY 07/29/13 [History] atorvaSTATin [Lipitor] 40 mg PO DAILY 07/29/13 [History] Nitroglycerin [Nitrostat] 0.4 mg SL ASDIRECTED PRN 02/06/15 [History] Oxybutynin 5 mg PO BID 10/23/15 [History] Acetaminophen [Tylenol Arthritis] 650 mg PO TID 10/03/18 [History] [place]-3 Fatty Acids/Fish Oil [[place]-3 Fish Oil 1,000 mg Sfgl] 1,000 mg PO DAILY 10/03/18 [History] Aspirin [Halfprin] 81 mg PO DAILY 10/18/18 [History] Isosorbide Dinitrate 10 mg PO BID 11/22/18 [History] Metoprolol Tartrate 50 mg PO DAILY 11/22/18 [History] hydrOXYzine pamoate [Vistaril] 25 mg PO TID PRN 11/22/18 [History] Past Medical History HEENT History: Reports: Cataract Other HEENT History: Cataract surgery 2015 Cardiovascular History: Reports: Angina, Blood Clots/VTE/DVT, CAD, Heart Failure , High Cholesterol, ND, Prior Cardiac Arrest, PTCA, Stents Respiratory History: Reports: None Gastrointestinal History: Reports: GERD Genitourinary History: Reports: UTI, Recurrent Other Genitourinary History: over active bladder history of UTI Other OB/BYN History: HYSTERECTOMY Musculoskeletal History: Reports: Back Pain, Chronic Other Musculoskeletal History: back pain with curved spine... 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 Neurological History: Reports: CVA Hematologic History: Reports: None Immunologic History: Reports: None - Infectious Disease History Infectious Disease History: Reports: Chicken Pox, Measles, Scarlet Fever - Past Surgical History HEENT Surgical History: Reports: Cataract Surgery Cardiovascular Surgical History: Reports: Coronary Artery Stent GI Surgical History: Reports: Cholecystectomy Female Surgical History: Reports: Hysterectomy Endocrine Surgical History: Reports: None Musculoskeletal Surgical History: Reports: Knee Replacement Oncologic Surgical History: Reports: None Dermatological Surgical History: Reports: None - History Comment History Comment: History reviewed Social & Family History - Family History Family Medical History: Noncontributory HEENT: Reports: None Cardiac: Reports: None Respiratory: Reports: None GI: Reports: None : Reports: None Psychiatric: Reports: None Endocrine/Metabolic: Reports: None Hematologic: Reports: None Oncologic: Reports: Pancreatic, Other (See Below) Other Oncologic Family History: Mother. - Tobacco Use Smoking Status *Q: Former Smoker Used Tobacco, but Quit: Yes Month/Year Tobacco Last Used: 1985 Second Hand Smoke Exposure: No - Caffeine Use Caffeine Use: Reports: Coffee Other Caffeine Use: 3 cups a day - Recreational Drug Use Recreational Drug Use: Yes Drug Use in Last 12 Months: No - Living Situation & Occupation Living situation: Reports: Assisted Living H&P Review of Systems - Review of Systems: Review Of Systems: See Below General: Reports: No Symptoms HEENT: Reports: No Symptoms Pulmonary: Reports: Shortness of Breath. Denies: Cough Cardiovascular: Reports: Chest Pain, Dyspnea on Exertion. Denies: Edema Gastrointestinal: Denies: Abdominal Pain, Constipation, Diarrhea, Nausea, Vomiting Genitourinary: Reports: Urgency (chronic on Oxybutynin). Denies: Dysuria, Frequency, Incontinence Musculoskeletal: Denies: Neck Pain, Shoulder Pain, Arm Pain Skin: Denies: Diaphoresis Psychiatric: Reports: Anxiety Neurological: Reports: Tingling (feet). Denies: Numbness Hematologic/Lymphatic: Denies: Easy Bleeding, Easy Bruising Exam - Exam Exam: See Below - Vital Signs Vital Signs: Last Vital Signs Temp 36.6 C 11/22/18 06:50 Pulse 72 11/22/18 06:50 Resp 20 11/22/18 06:50 BP 170/99 H 11/22/18 06:50 Pulse Ox 96 11/22/18 06:50 Weight: 62.505 kg - Exam General: Alert, Oriented, Cooperative Neck: Trachea Midline Lungs: Clear to Auscultation Cardiovascular: Regular Rate, Regular Rhythm GI/Abdominal Exam: Normal Bowel Sounds, Soft, Non-Tender, No Distention Extremities: Normal Inspection, No Pedal Edema Peripheral Pulses: 2+: Radial (L), Radial (R), Dorsalis Pedis (L), Dorsalis Pedis (R) Skin: Warm, Dry, Intact Neurological: Cranial Nerves Intact Neuro Extensive - Mental Status: Oriented x3, Normal Cognition Psychiatric: Normal Affect, Anxious - Patient Data Lab Results Last 24 hrs: Laboratory Results - last 24 hr 11/22/18 11/22/18 11/22/18 Range/Units 04:57 05:10 05:10 WBC 4.5 (4.5-12.0) X10-3/uL RBC 4.75 (3.23-5.20) x10(6)uL Hgb 14.8 (11.5-15.5) g/dL Hct 45.4 (30.0-51.3) % MCV 95.6 (80-96) fL MCH 31.1 (27.7-33.6) pg MCHC 32.6 (32.2-35.4) g/dL RDW 12.2 (11.5-15.5) % Plt Count 89 L (125-369) X10(3)uL MPV 8.5 (7.4-10.4) fL Neut % (Auto) 60.7 (46-82) % Lymph % (Auto) 22.5 (13-37) % [place] % (Auto) 13.3 H (4-12) % Eos % (Auto) 3 (1.0-5.0) % Baso % (Auto) 1 (0-2) % Neut # (Auto) 2.8 (1.6-8.3) # Lymph # (Auto) 1.0 (0.6-5.0) # [place] # (Auto) 0.6 (0.0-1.3) # Eos # (Auto) 0.1 (0.0-0.8) # Baso # (Auto) 0.0 (0.0-0.2) # Sodium 138 (135-145) mmol/L Potassium 3.9 (3.5-5.3) mmol/L Chloride 101 (100-110) mmol/L Carbon Dioxide 29 (21-32) mmol/L BUN 10 (7-18) mg/dL Creatinine 0.8 (0.55-1.02) mg/dL Est Cr Clr Drug Dosing 40.98 mL/min Estimated GFR (MDRD) > 60 (>60) BUN/Creatinine Ratio 12.5 (9-20) Glucose 96 (80-116) mg/dL Calcium 9.7 (8.6-10.2) mg/dL Magnesium 1.8 (1.8-2.5) mg/dL Total Bilirubin 1.1 (0.1-1.3) mg/dL AST 24 (5-25) IU/L ALT 24 (12-36) U/L Alkaline Phosphatase 70 (56-112) IU/L Troponin I (<0.017-0.056) ng/mL NT-Pro-B Natriuret Pep (<=450) pg/mL Total Protein 8.0 (6.0-8.0) g/dL Albumin 3.9 (3.2-4.6) g/dL Globulin 4.1 g/dL Albumin/Globulin Ratio 1.0 Urine Color Yellow (YELLOW) Urine Appearance Clear (CLEAR) Urine pH 7.0 H (5.0-6.5) Ur Specific [place] 1.005 L (1.010-1.025) Urine Protein Negative (NEGATIVE) mg/dL Urine Glucose (UA) Normal (NORMAL) mg/dL Urine Ketones Negative (NEGATIVE) mg/dL Urine Occult Blood Negative (NEGATIVE) Urine Nitrite Negative (NEGATIVE) Urine Bilirubin Negative (NEGATIVE) Urine Urobilinogen Normal (NEGATIVE) mg/dL Ur Leukocyte Esterase Small H (NEGATIVE) Urine RBC 0-5 (0-5) Urine WBC 5-10 H (0-5) Ur Squamous Epith Cells Occasional (NS,R,O) Urine Bacteria Moderate H (NS) 11/22/18 Range/Units 05:10 WBC (4.5-12.0) X10-3/uL RBC (3.23-5.20) x10(6)uL Hgb (11.5-15.5) g/dL Hct (30.0-51.3) % MCV (80-96) fL MCH (27.7-33.6) pg MCHC (32.2-35.4) g/dL RDW (11.5-15.5) % Plt Count (125-369) X10(3)uL MPV (7.4-10.4) fL Neut % (Auto) (46-82) % Lymph % (Auto) (13-37) % [place] % (Auto) (4-12) % Eos % (Auto) (1.0-5.0) % Baso % (Auto) (0-2) % Neut # (Auto) (1.6-8.3) # Lymph # (Auto) (0.6-5.0) # [place] # (Auto) (0.0-1.3) # Eos # (Auto) (0.0-0.8) # Baso # (Auto) (0.0-0.2) # Sodium (135-145) mmol/L Potassium (3.5-5.3) mmol/L Chloride (100-110) mmol/L Carbon Dioxide (21-32) mmol/L BUN (7-18) mg/dL Creatinine (0.55-1.02) mg/dL Est Cr Clr Drug Dosing mL/min Estimated GFR (MDRD) (>60) BUN/Creatinine Ratio (9-20) Glucose (80-116) mg/dL Calcium (8.6-10.2) mg/dL Magnesium (1.8-2.5) mg/dL Total Bilirubin (0.1-1.3) mg/dL AST (5-25) IU/L ALT (12-36) U/L Alkaline Phosphatase (56-112) IU/L Troponin I 0.019 (<0.017-0.056) ng/mL NT-Pro-B Natriuret Pep 441 (<=450) pg/mL Total Protein (6.0-8.0) g/dL Albumin (3.2-4.6) g/dL Globulin g/dL Albumin/Globulin Ratio Urine Color (YELLOW) Urine Appearance (CLEAR) Urine pH (5.0-6.5) Ur Specific [place] (1.010-1.025) Urine Protein (NEGATIVE) mg/dL Urine Glucose (UA) (NORMAL) mg/dL Urine Ketones (NEGATIVE) mg/dL Urine Occult Blood (NEGATIVE) Urine Nitrite (NEGATIVE) Urine Bilirubin (NEGATIVE) Urine Urobilinogen (NEGATIVE) mg/dL Ur Leukocyte Esterase (NEGATIVE) Urine RBC (0-5) Urine WBC (0-5) Ur Squamous Epith Cells (NS,R,O) Urine Bacteria (NS) Result Diagrams: 11/22/18 05:10 11/22/18 05:10 EKG INTERPRETATION EKG Date: 11/22/18 Time: 03:54 Rhythm: NSR Rate (Beats/Min): 82 Edison: LAD-Left Edison Deviation P-Wave: Present QRS: LBBB ST-T: Depressed (anterior/lateral) QT: Prolonged Comparison: No Change EKG Interpretation Comments: Normal Sinus Rhythm with chronic LBBB, unchanged from previous EKG. *Q Meaningful Use (ADM) - VTE *Q VTE Pharmacological Contraindications *Q: Thrombocytopenia - VTE Risk Assess *Q Each Risk Factor Represents 1 Point: None Total Score 1 Point Risk Factors: 0 Each Risk Factor Represents 2 Points: None Total Score 2 Point Risk Factors: 0 Each Risk Factor Represents 3 Points: Age 75 Years or Greater, History of DVT/PE Total Score 3 Point Risk Factors: 6 Each Risk Factor Represents 5 Points: None Total Score 5 Point Risk Factors: 0 Venous Thromboembolism Risk Factor Score *Q: 6 - Problem List (1) Chest pain SNOMED Code(s): 76270412 ICD Code: R07.9 - CHEST PAIN, UNSPECIFIED Status: Acute Current Visit: Yes Onset Date: 11/22/18 Qualifiers: Chest pain type: unspecified Qualified Code(s): R07.9 - Chest pain, unspecified (2) Thrombocytopenia SNOMED Code(s): 447982366 ICD Code: D69.6 - THROMBOCYTOPENIA, UNSPECIFIED Status: Chronic Current Visit: Yes Onset Date: 09/2018 (3) CAD (coronary artery disease) SNOMED Code(s): 25929859 ICD Code: I25.10 - ATHSCL HEART DISEASE OF [place] CORONARY ARTERY W/O ANG PCTRS Status: Chronic Current Visit: Yes Qualifiers: Coronary Disease-Associated Artery/Lesion type: [place]arrow artery [place] vs. transplanted heart: barrow heart (4) History of coronary artery stent placement SNOMED Code(s): 961235260, 357349216 ICD Code: Z95.5 - PRESENCE OF CORONARY ANGIOPLASTY IMPLANT AND GRAFT Status : Chronic Current Visit: Yes (5) Anxiety SNOMED Code(s): 77017522 ICD Code: F41.9 - ANXIETY DISORDER, UNSPECIFIED Status: Chronic Current Visit: Yes (6) Gastroesophageal reflux disease SNOMED Code(s): 953495461 ICD Code: K21.9 - GASTRO-ESOPHAGEAL REFLUX DISEASE WITHOUT ESOPHAGITIS Status: Chronic Current Visit: No Problem List Initiated/Reviewed/Updated: Yes Orders Last 24hrs: Active Orders 24 hr Category Date Time Status Admission Status [Patient Status] [ADT] Routine ADT 11/22/18 06:36 Active Patient Status Manage Transfer [TRANSFER] Routine ADT 11/22/18 06:43 Active Cardiac Monitoring [RC] .As Directed Care 11/22/18 06:36 Active EKG Documentation Completion [RC] ASDIRECTED Care 11/22/18 03:54 Active Intake and Output [RC] QSHIFT Care 11/22/18 06:39 Active Oxygen Therapy [RC] PRN Care 11/22/18 06:39 Active Pulse Oximetry [RC] CONTINUOUS Care 11/22/18 06:39 Active Up With Assistance [RC] ASDIRECTED Care 11/22/18 06:38 Active VTE/DVT Education [RC] Per Unit Routine Care 11/22/18 06:39 Active Vital Signs [RC] Q4H Care 11/22/18 06:39 Active Heart Healthy Diet [DIET] Diet 11/22/18 Breakfast Active Chest 1V Frontal [CR] Stat Exams 11/22/18 04:56 Ordered CULTURE URINE [RM] Stat Lab 11/22/18 04:56 Received TROPONIN I [CHEM] Routine Lab 11/22/18 11:00 Ordered TROPONIN I [CHEM] Routine Lab 11/22/18 17:00 Ordered Acetaminophen [Tylenol] Med 11/22/18 06:38 Active 650 mg PO Q4H PRN Ondansetron [Zofran ODT] Med 11/22/18 06:38 Active 4 mg PO Q6H PRN Ondansetron [Zofran] Med 11/22/18 06:38 Active 4 mg IV Q6H PRN Sodium Chloride 0.9% [Saline Flush] Med 11/22/18 04:56 Active 10 ml FLUSH ASDIRECTED PRN Peripheral IV Insertion Adult [OM.PC] Routine Oth 11/22/18 04:56 Ordered Resuscitation Status Routine Resus Stat 11/22/18 06:38 Ordered EKG 12 Lead [EK] Routine Ther 11/22/18 03:54 Ordered Medication Orders Acetaminophen (Tylenol) 650 mg PO Q4H PRN PRN Reason: Pain (Mild 1-3)/fever Ondansetron HCl (Zofran Odt) 4 mg PO Q6H PRN PRN Reason: nausea, able to take PO Ondansetron HCl (Zofran) 4 mg IV Q6H PRN PRN Reason: Nausea/Vomiting Sodium Chloride (Saline Flush) 10 ml FLUSH ASDIRECTED PRN PRN Reason: Keep Vein Open Last Admin: 11/22/18 04:00 Dose: 10 ml Assessment/Plan Comment:: 1. Admit for observation/cardiac monitoring. 2. Resume home medications including her Metoprolol and Imdur, will hold her aspirin and Plavix since her platelets are 89 this morning. Repeat CBC tomorrow am. 3. Serial troponin, telemetry. 4. Nitroglycerin SL as needed. 5. Monitor her blood pressures and adjust medications as needed. 6. Code status: Full.
[2018-11-22] MEDS ORDERED: Enoxaparin 60 MG/0.6 ML Syringe SUBCUT SCH ×2 (08:00→09:00)
[2018-11-22] MEDS ORDERED: Enoxaparin 60 MG/0.6 ML Syringe SUBCUT ONE (08:15)
[2018-11-22] MEDS ORDERED: Nitroglycerin 0.4 MG Tab.SL SL PRN (08:51)
[2018-11-22] MEDS ORDERED: HYDROXYZINE PAMOATE 25 MG PO PRN (08:51)
[2018-11-22] MEDS ORDERED: [UNRECOGNIZED DRUG - OTHER] PO SCH (09:00)
[2018-11-22] MEDS ORDERED: FISH OIL PO SCH (09:00)
[2018-11-22] MEDS ORDERED: FATTY ACIDS PO SCH (09:00)
[2018-11-22] MEDS ORDERED: OMEGA PO SCH (09:00)
[2018-11-22] MEDS: ATORVASTATIN 40 MG PO SCH (09:51)
[2018-11-22] MEDS: ISOSORBIDE DINITRATE 10 MG PO SCH ×2 (09:51→20:03)
[2018-11-22] MEDS: ACETAMINOPHEN 650 MG PO SCH ×3 (09:51→20:01)
[2018-11-22] MEDS: MULTIVITAMIN PO SCH (09:52)
[2018-11-22] MEDS: Metoprolol Succinate 50 MG Tab.ER PO SCH (09:52)
[2018-11-22] MEDS: Oxybutynin 5 MG Tab PO SCH ×2 (09:52→20:06)
[2018-11-23] MEDS ORDERED: Nitroglycerin 0.4 MG Tab.SL SL PRN (08:00)
[2018-11-23] MEDS ORDERED: Ciprofloxacin 250 MG Tab PO SCH (09:00)
[2018-11-23] MEDS: ACETAMINOPHEN 650 MG PO SCH (09:23)
[2018-11-23] MEDS: ISOSORBIDE DINITRATE 10 MG PO SCH (09:24)
[2018-11-23] MEDS: ATORVASTATIN 40 MG PO SCH (09:24)
[2018-11-23] MEDS: Oxybutynin 5 MG Tab PO SCH (09:25)
[2018-11-23] MEDS: MULTIVITAMIN PO SCH (09:26)
[2018-11-23] MEDS: Metoprolol Succinate 50 MG Tab.ER PO SCH (09:26)
--- NOTE | 2018-11-23 10:52 | CR ---
INDICATION: Chest pressure, short of breath. CHEST: An AP portable upright view of the chest, 11/22/18, was compared with and 10/03/18. Pulmonary markings appear similar to the previous examinations, compatible with fibrosis in the right mid lung field and both lung bases, especially the left. Minimal areas of patchy bronchopneumonia are difficult to exclude in those areas. However, no consolidating pneumonia or definite effusion was seen. The heart appeared normal in size, allowing for AP positioning. The aorta is tortuous with calcification in the arch and descending portion. Overlying EKG leads are noted. There appears to be some hyperaeration with mildly flattened diaphragm leaves, raising question of COPD - correlate clinically. Moderate dextroconcave scoliosis of the lower thoracic spine is noted with degenerative disk disease in that area and hypertrophic degenerative changes also present. IMPRESSION: 1. No acute process. 2. Probable pulmonary fibrosis, making it difficult to exclude minimal areas of patchy bronchopneumonia bilaterally. 3. ASD aorta. 4. Moderate scoliosis, dextroconcave, lower thoracic spine with degenerative changes and disk disease in that area. MTDD
--- NOTE | 2018-11-23 10:59 | PCM.DCSUM1 ---
Discharge Summary - Hospital Course HPI Initial Comments: HPI: Patient got up to go to the bathroom at 3 am this morning and developed substernal chest pressure, non-radiating, shortness of breath, nausea, weakness but no diaphoresis or vomiting. She had some tingling in her feet but has since resolved. She did take 1 nitroglycerin SL tablet after she had called her grandson to bring her to the ER. She states that it didn't really help. She continued to have the pressure on the way to ER but reported no pain/pressure after arrival to ER. EKG was unchanged from previous, old LBBB. Troponin was normal. Her blood pressure medications had recently been changed at her PCP clinic, her dose of Metoprolol 25 mg tid was changed to 50 mg daily and Imdur was increased from 5 mg bid to 10 mg tid. She was seen in [place] for similar pains a month ago, did stress test, they discussed doing angiogram but her and her son felt that was risky so they did medication management. She states that she had some chest pressure yesterday morning with shortness of breath but resolved after taking her morning medications. She also reported that her symptoms have been intermittent but increasing over the past month. She states she does get anxious and is on Vistaril 25 mg tid prn anxiety. Also noted that her kids are all out of town and her grandson is helping her. Lives in an assisted apartment alone with assistance from her family. Diagnosis: Stroke: No - Discharge Data Discharge Date: 11/23/18 Discharge Disposition: Home, Self-Care 01 Condition: Good - Discharge Diagnosis/Problem(s) (1) Chest pain SNOMED Code(s): 56243369 ICD Code: R07.9 - CHEST PAIN, UNSPECIFIED Status: Resolved Current Visit : Yes Onset Date: 11/22/18 Qualifiers: Chest pain type: unspecified Qualified Code(s): R07.9 - Chest pain, unspecified (2) Thrombocytopenia SNOMED Code(s): 913858926 ICD Code: D69.6 - THROMBOCYTOPENIA, UNSPECIFIED Status: Chronic Current Visit: Yes Onset Date: 09/2018 Problem Details: Cardiac stents placed in 2013, will hold Plavix & Aspirin until her peripheral smear results are back and further workup done as to cause. Plavix causing TTP is rare 4/1,000,000 but increase risk with coadministration with statin. Her symptoms of shortness of breath, weight loss(5 lbs) could be possibly due to thrombocytopenia. (3) CAD (coronary artery disease) SNOMED Code(s): 91739138 ICD Code: I25.10 - ATHSCL HEART DISEASE OF [place] CORONARY ARTERY W/O ANG PCTRS Status: Chronic Current Visit: Yes Qualifiers: Coronary Disease-Associated Artery/Lesion type: [place] artery [place] vs. transplanted heart: [place] heart (4) History of coronary artery stent placement SNOMED Code(s): 328387595, 930689099 ICD Code: Z95.5 - PRESENCE OF CORONARY ANGIOPLASTY IMPLANT AND GRAFT Status : Chronic Current Visit: Yes Onset Date: 07/2013 (5) Anxiety SNOMED Code(s): 29385490 ICD Code: F41.9 - ANXIETY DISORDER, UNSPECIFIED Status: Chronic Current Visit: Yes (6) Gastroesophageal reflux disease SNOMED Code(s): 988797016 ICD Code: K21.9 - GASTRO-ESOPHAGEAL REFLUX DISEASE WITHOUT ESOPHAGITIS Status: Chronic Current Visit: No - Patient Summary/Data Hospital Course: Patient was admitted for observation, had serial cardiac enzymes which all 3 sets were negative. No change in her EKG or telemetry. She had a similar episode right before breakfast, with nausea, treated with Zofran and her morning medications and resolved. No bleeding events noted. Patient denies any bleeding of gums, blood in her stool or petechiae. Spoke with her daughter Rhianna as to her test results. She had no further episodes during her stay. Urine culture done in ER grew out Gram negative Rods(GNR) and patient has been having frequency going every 2 hours, denies any odor or pain, started on Ciprofloxacin 250 mg bid x 3 days, 1st dose given in hospital. Patient did receive 1 dose of Lovenox on admission but held when her platelet level was reviewed, held her aspirin and Plavix and recheck her CBC on FridayNovember 23, which dropped from 89 to 76, no bleeding. Spoke with pharmacy and though rare incidence of TTP with Plavix that risk does increase with coadministration with statin. Unknown if she has had workup as outpatient, her stents were placed in July 2013 so reasonable to discontinue. Peripheral smear done this morning, it is a send out and will have her follow up with her PCP as outpatient for further workup of her thrombocytopenia. - Patient Instructions Diet: Heart Healthy Diet Activity: As Tolerated Driving: May Drive Today Showering/Bathing: May Shower Notify Provider of: Fever, Increased Pain (return of symptoms) - Discharge Plan *PRESCRIPTION DRUG MONITORING PROGRAM REVIEWED*: Not Applicable *COPY OF PRESCRIPTION DRUG MONITORING REPORT IN PATIENT JANNETH: Not Applicable Prescriptions/Med Rec: Ciprofloxacin [Ciprofloxacin HCl] 250 mg PO BID 3 Days #5 tablet Home Medications: Home Meds Calcium Carbonate/Vitamin D3 [Caltrate 600+D 1500 MG-400 Units] 1 tab PO DAILY 07/29/13 [History] Multivitamin [Multivitamins] 1 cap PO DAILY 07/29/13 [History] atorvaSTATin [Lipitor] 40 mg PO DAILY 07/29/13 [History] Nitroglycerin [Nitrostat] 0.4 mg SL ASDIRECTED PRN 02/06/15 [History] Oxybutynin 5 mg PO BID 10/23/15 [History] Acetaminophen [Tylenol Arthritis] 650 mg PO TID 10/03/18 [History] [place]-3 Fatty Acids/Fish Oil [[place]-3 Fish Oil 1,000 mg Sfgl] 1,000 mg PO DAILY 10/03/18 [History] Isosorbide Dinitrate 10 mg PO BID 11/22/18 [History] hydrOXYzine pamoate [Vistaril] 25 mg PO TID PRN 11/22/18 [History] Ciprofloxacin [Ciprofloxacin HCl] 250 mg PO BID 3 Days #5 tablet 11/23/18 [Rx] Metoprolol Succinate [Toprol XL 50mg] 50 mg PO DAILY 11/23/18 [History] Oxygen Therapy Mode: Room Air Forms: ED Department Discharge Referrals: Jeermy Rosales MD [Primary Care Provider] - - Discharge Summary/Plan Comment DC Time >30 min.: No - Patient Data Vitals - Most Recent: Last Vital Signs Temp 36.4 C 11/23/18 08:00 Pulse 75 11/23/18 09:26 Resp 14 11/23/18 08:00 BP 144/84 H 11/23/18 09:26 Pulse Ox 94 L 11/23/18 08:00 Weight - Most Recent: 62.505 kg Lab Results - Last 24 hrs: Laboratory Results - last 24 hr 11/22/18 11/22/18 11/23/18 Range/Units 11:00 17:05 06:30 WBC 4.5 (4.5-12.0) X10-3/uL RBC 4.52 (3.23-5.20) x10(6)uL Hgb 14.2 (11.5-15.5) g/dL Hct 43.4 (30.0-51.3) % MCV 95.9 (80-96) fL MCH 31.4 (27.7-33.6) pg MCHC 32.8 (32.2-35.4) g/dL RDW 12.5 (11.5-15.5) % Plt Count 76 L (125-369) X10(3)uL MPV 8.5 (7.4-10.4) fL Add Manual Diff Yes Neutrophils % (Manual) 63 (46-82) % Lymphocytes % (Manual) 25 (13-37) % Monocytes % (Manual) 11 (4-12) % Eosinophils % (Manual) 1 (0-5) % Troponin I < 0.017 L < 0.017 L (<0.017-0.056) ng/mL CORRINA Results - Last 24 hrs: Microbiology 11/22/18 04:56 Urine Culture - Preliminary Urine, Voided Gram Negative Rods Med Orders - Current: Current Medications Acetaminophen (Tylenol) 650 mg PO Q4H PRN PRN Reason: Pain (Mild 1-3)/fever Last Admin: 11/23/18 05:32 Dose: 650 mg Ciprofloxacin (Ciprofloxacin Hcl) 250 mg PO BID [facility] Stop: 11/25/18 21:01 Last Admin: 11/23/18 09:28 Dose: 250 mg Isosorbide Dinitrate (Isordil) 10 mg PO BID [facility] Last Admin: 11/23/18 09:24 Dose: 10 mg Metoprolol Succinate (Toprol Xl) 50 mg PO DAILY [facility] Last Admin: 11/23/18 09:26 Dose: 50 mg Nitroglycerin (Nitrostat) 0.4 mg SL ASDIRECTED PRN PRN Reason: Chest Pain Acetaminophen [ Tylenol Arthritis] 650mg Own Med 650 mg PO TID [facility] Last Admin: 11/23/18 09:23 Dose: 650 mg Atorvastatin [ Lipitor] 40mg Own Med 40 mg PO DAILY [facility] Last Admin: 11/23/18 09:24 Dose: 40 mg Non-Formulary Medication (Calcium Carbonate/Vitamin D3 [Caltrate 600+D 1500 Mg- 400 Units]) 1 tab PO DAILY [facility] Hydroxyzine Pamoate [Vistaril] 25mg Own Med 25 mg PO TID PRN PRN Reason: Anxiety Last Admin: 11/22/18 09:52 Dose: 25 mg Multivitamin [ Centrum Silver 1 Cap Own Med 1 cap PO DAILY [facility] Last Admin: 11/23/18 09:26 Dose: 1 cap Non-Formulary Medication ([place]-3 Fatty Acids/Fish Oil [[place]-3 Fish Oil 1,000 Mg Sfgl]) 1,000 mg PO DAILY [facility] Ondansetron HCl (Zofran Odt) 4 mg PO Q6H PRN PRN Reason: nausea, able to take PO Last Admin: 11/22/18 09:11 Dose: 4 mg Ondansetron HCl (Zofran) 4 mg IV Q6H PRN PRN Reason: Nausea/Vomiting Oxybutynin Chloride (Oxybutynin) 5 mg PO BID [facility] Last Admin: 11/23/18 09:25 Dose: 5 mg Sodium Chloride (Saline Flush) 10 ml FLUSH ASDIRECTED PRN PRN Reason: Keep Vein Open Last Admin: 11/22/18 04:00 Dose: 10 ml Discontinued Medications Aspirin (Aspirin) 324 mg PO ONETIME ONE Stop: 11/22/18 04:58 Last Admin: 11/22/18 05:00 Dose: 324 mg Enoxaparin Sodium (Lovenox) 60 mg SUBCUT Q12H [facility] Last Admin: 11/22/18 08:48 Dose: Not Given Enoxaparin Sodium (Lovenox) 60 mg SUBCUT ONETIME ONE Stop: 11/22/18 08:16 Last Admin: 11/22/18 09:10 Dose: 60 mg Enoxaparin Sodium (Lovenox) 60 mg SUBCUT Q12H [facility] Last Admin: 11/22/18 09:53 Dose: Not Given Nitroglycerin (Nitrostat) 0.4 mg SL ASDIRECTED PRN PRN Reason: Chest Pain *Q Meaningful Use (DIS) - VTE *Q VTE Pharmacological Contraindications *Q: Thrombocytopenia
[2018-11-23 12:25] VITALS: BP 90/60; PULSE 63
== END 2018-11-23 12:50 | disposition home or self-care (01) ==
LOC: FB.ED 03:53 → FB.MS 06:40
PROVIDERS: ADMIT Emergency Medicine; ATTEND Family Medicine
DX: R07.2 Precordial pain (principal); D69.6 Thrombocytopenia, unspecified; I25.10 Atherosclerotic heart disease of native coronary artery without angina pectoris; I50.9 Heart failure, unspecified; I44.7 Left bundle-branch block, unspecified; I25.2 Old myocardial infarction; E78.00 Pure hypercholesterolemia, unspecified; K21.9 Gastro-esophageal reflux disease without esophagitis; F41.9 Anxiety disorder, unspecified; Z88.6 Allergy status to analgesic agent; Z95.5 Presence of coronary angioplasty implant and graft; Z87.891 Personal history of nicotine dependence; Z79.899 Other long term (current) drug therapy
CPT/HCPCS: 36415; 71045; 80053; 81001; 83735; 83880; 84484; 85025; 87086; 87088; 87186; 88104; 93005; 96372; 99285; A9270; G0378; J1650; 93010; 99284

== ENCOUNTER 2018-11-27 13:32 | Emergency (ER) | payer MEDICARE, OTHER ==
--- NOTE | 2018-11-27 14:26 | EDM.PDOC ---
ED HPI GENERAL MEDICAL PROBLEM - General Chief Complaint: General Stated Complaint: SOB, WEAKNESS IN LEGS Time Seen by Provider: 11/27/18 14:05 Source of Information: Reports: Patient History Limitations: Reports: No Limitations - History of Present Illness INITIAL COMMENTS - FREE TEXT/NARRATIVE: 87-year-old female who presents to the emergency department complaining of generalized weakness with weakness in her legs and shortness of breath. The weakness and shortness of breath she reports has been coming on over the past 2- 3 months. She was recently seen by myself in the emergency department with chest pain and was admitted for rule out SC. SC was ruled out and while in the hospital she did have what appeared to be a urinary tract infection and it was found that she had decreasing platelet count. She had no further chest pain in the hospital and was discharged with follow-up with Dr. Rosales on 11/25/2018. She was also set up to follow-up with the sergeant of officers in [place] in regard to her thrombocytopenia. The patient reports that since she has been discharged from the hospital she continues to feel weak all over and with shortness of breath. Today she felt that she had a hard time even walking. Although, she tells me that she walked up and down the [place] in her assisted living today. She tells me that she just doesn't feel right. She doesn't feel well. And she is not able to do her normal things. Apparently this has been going on for quite some time as mentioned above (for the past to 3 months). No nausea or vomiting. No abdominal pain. She has had decreased appetite for quite some time but she tells me that she drinks fluids well and she has been drinking ensure to try to get her strength up. She has had no dysuria or hematuria. She's had no fevers or chills. There are no other associated signs or symptoms. There are no other modifying factors. Onset: Other (Ongoing for sometime as mentioned above) Duration: Getting Worse (Feels that things are getting worse) Location: Reports: Generalized (Weak all over and short of breath) Quality: Reports: Other (No pain. 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 below) (Nothing) - Related Data Allergies Allergy/AdvReac Type Severity Reaction Status Date / Time NSAIDS (Non-Steroidal Allergy UNKNOWN Verified 10/18/18 22:31 Anti-Inflamma Home Meds: Home Meds Calcium Carbonate/Vitamin D3 [Caltrate 600+D 1500 MG-400 Units] 1 tab PO DAILY 07/29/13 [History] Multivitamin [Multivitamins] 1 cap PO DAILY 07/29/13 [History] atorvaSTATin [Lipitor] 40 mg PO DAILY 07/29/13 [History] Nitroglycerin [Nitrostat] 0.4 mg SL ASDIRECTED PRN 02/06/15 [History] Oxybutynin 5 mg PO BID 10/23/15 [History] Acetaminophen [Tylenol Arthritis] 650 mg PO TID 10/03/18 [History] [place]-3 Fatty Acids/Fish Oil [[place] Fish Oil 1,000 mg Sfgl] 1,000 mg PO DAILY 10/03/18 [History] Isosorbide Dinitrate 10 mg PO BID 11/22/18 [History] hydrOXYzine pamoate [Vistaril] 25 mg PO TID PRN 11/22/18 [History] Ciprofloxacin [Ciprofloxacin HCl] 250 mg PO BID 3 Days #5 tablet 11/23/18 [Rx] Metoprolol Succinate [Toprol XL 50mg] 50 mg PO DAILY 11/23/18 [History] Amoxicillin/Clavulanate K [Augmentin 875-125 MG] 1 tab PO BID 10 Days #20 tablet 11/27/18 [Rx] Past Medical History HEENT History: Reports: Cataract Other HEENT History: Cataract surgery 2015 Cardiovascular History: Reports: Angina, Blood Clots/VTE/DVT, CAD, Heart Failure , High Cholesterol, SC, Prior Cardiac Arrest, PTCA, Stents Gastrointestinal History: Reports: GERD Genitourinary History: Reports: UTI, Recurrent Other Genitourinary History: over active bladder history of UTI Musculoskeletal History: Reports: Back Pain, Chronic Other Musculoskeletal History: back pain with curved spine... 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 Neurological History: Reports: CVA Hematologic History: Reports: Other (See Below) (Recently with thrombocytopenia of unclear etiology) - Infectious Disease History Infectious Disease History: Reports: Chicken Pox, Measles, Scarlet Fever - Past Surgical History HEENT Surgical History: Reports: Cataract Surgery Cardiovascular Surgical History: Reports: Coronary Artery Stent GI Surgical History: Reports: Cholecystectomy Female Surgical History: Reports: Hysterectomy Musculoskeletal Surgical History: Reports: Knee Replacement Oncologic Surgical History: Reports: None Dermatological Surgical History: Reports: None - History Comment History Comment: History reviewed Social & Family History - Family History Family Medical History: Noncontributory HEENT: Reports: None Cardiac: Reports: None Respiratory: Reports: None GI: Reports: None : Reports: None Psychiatric: Reports: None Endocrine/Metabolic: Reports: None Hematologic: Reports: None Oncologic: Reports: Pancreatic, Other (See Below) Other Oncologic Family History: Mother. - Tobacco Use Smoking Status *Q: Never Smoker - Caffeine Use Caffeine Use: Reports: Coffee Other Caffeine Use: 3 cups a day - Living Situation & Occupation Living situation: Reports: Assisted Living ED ROS GENERAL - Review of Systems Review Of Systems: See Below Constitutional: Reports: Malaise, Weakness, Decreased Appetite HEENT: Reports: No Symptoms Respiratory: Reports: Shortness of Breath Cardiovascular: Reports: No Symptoms Endocrine: Reports: Other (Poor appetite) GI/Abdominal: Reports: No Symptoms : Reports: No Symptoms Musculoskeletal: Reports: No Symptoms (No leg swelling) Skin: Reports: No Symptoms (No rashes) Neurological: Reports: No Symptoms Immunologic: Reports: No Symptoms ED EXAM, GENERAL - Physical Exam Exam: See Below Exam Limited By: No Limitations General Appearance: Alert, WD/WN, Mild Distress Eye Exam: Bilateral Eye: EOMI, Normal Inspection, PERRL Ears: Normal External Exam Ear Exam: Bilateral Ear: Auricle Normal Nose: Normal Inspection, Normal Mucosa, No Blood Throat/Mouth: Normal Inspection, Normal Oropharynx, Normal Voice, No Airway Compromise Head: Atraumatic, Normocephalic Neck: Normal Inspection, Supple, Non-Tender, Full Range of Motion Respiratory/Chest: No Respiratory Distress, Lungs Clear, Normal Breath Sounds, No Accessory Muscle Use, Chest Non-Tender Cardiovascular: Normal Peripheral Pulses, Regular Rate, Rhythm, No JVD Peripheral Pulses: 2+: Radial (L), Radial (R), Dorsalis Pedis (L), Dorsalis Pedis (R) GI/Abdominal: Normal Bowel Sounds, Soft, Non-Tender, No Distention, No Mass Back Exam: Normal Inspection Extremities: Normal Inspection, Normal Range of Motion, Non-Tender, No Pedal Edema, Normal Capillary Refill, Other (Warm hands and feet with good perfusion) Neurological: Alert, Oriented, CN II-XII Intact, No Motor/Sensory Deficits Psychiatric: Anxious Skin Exam: Warm, Dry, Intact, Normal Color, No Rash EKG INTERPRETATION EKG Date: 11/27/18 Time: 14:56 Rhythm: NSR Rate (Beats/Min): 66 [place]: Normal P-Wave: Present QRS: LBBB ST-T: Depressed (Laterally) QT: Normal RI/PQ Interval: Prolonged RI interval Comparison: No Change (No change from EKGs performed on 10/18/2018 and 11/22/2018.) Course - Orders/Labs/Meds Orders: Active Orders 24 hr Category Date Time Status EKG Documentation Completion [RC] ASDIRECTED Care 11/27/18 14:27 Active CULTURE URINE [RM] Stat Lab 11/27/18 16:14 Ordered EKG 12 Lead [EK] Routine Ther 11/27/18 14:26 Ordered Labs: Laboratory Tests 11/27/18 11/27/18 11/27/18 Range/Units 14:50 14:50 14:50 WBC 5.5 (4.5-12.0) X10-3/uL RBC 4.28 (3.23-5.20) x10(6)uL Hgb 13.5 (11.5-15.5) g/dL Hct 40.9 (30.0-51.3) % MCV 95.5 (80-96) fL MCH 31.6 (27.7-33.6) pg MCHC 33.1 (32.2-35.4) g/dL RDW 12.3 (11.5-15.5) % Plt Count 72 L (125-369) X10(3)uL MPV 8.9 (7.4-10.4) fL Neut % (Auto) 73.8 (46-82) % Lymph % (Auto) 13.5 (13-37) % [place] % (Auto) 10.6 (4-12) % Eos % (Auto) 2 (1.0-5.0) % Baso % (Auto) 1 (0-2) % Neut # (Auto) 4.1 (1.6-8.3) # Lymph # (Auto) 0.7 (0.6-5.0) # Creek # (Auto) 0.6 (0.0-1.3) # Eos # (Auto) 0.1 (0.0-0.8) # Baso # (Auto) 0.0 (0.0-0.2) # ESR 6 (0-20) mm/hr PT 10.9 (8.7-11.1) INR 1.12 (0.89-1.13) Sodium 131 L (135-145) mmol/L Potassium 4.2 (3.5-5.3) mmol/L Chloride 98 L (100-110) mmol/L Carbon Dioxide 25 (21-32) mmol/L BUN 17 (7-18) mg/dL Creatinine 0.7 (0.55-1.02) mg/dL Est Cr Clr Drug Dosing TNP Estimated GFR (MDRD) > 60 (>60) BUN/Creatinine Ratio 24.3 H (9-20) Glucose 157 H (80-116) mg/dL Calcium 8.8 (8.6-10.2) mg/dL Magnesium 1.9 (1.8-2.5) mg/dL Total Bilirubin 0.8 (0.1-1.3) mg/dL AST 23 (5-25) IU/L ALT 23 (12-36) U/L Alkaline Phosphatase 68 (56-112) IU/L Troponin I (<0.017-0.056) ng/mL C-Reactive Protein (0.5-0.9) mg/dL NT-Pro-B Natriuret Pep (<=450) pg/mL Total Protein 7.3 (6.0-8.0) g/dL Albumin 3.6 (3.2-4.6) g/dL Globulin 3.7 g/dL Albumin/Globulin Ratio 1.0 Urine Color (YELLOW) Urine Appearance (CLEAR) Urine pH (5.0-6.5) Ur Specific [place] (1.010-1.025) Urine Protein (NEGATIVE) mg/dL Urine Glucose (UA) (NORMAL) mg/dL Urine Ketones (NEGATIVE) mg/dL Urine Occult Blood (NEGATIVE) Urine Nitrite (NEGATIVE) Urine Bilirubin (NEGATIVE) Urine Urobilinogen (NEGATIVE) mg/dL Ur Leukocyte Esterase (NEGATIVE) Urine RBC (0-5) Urine WBC (0-5) Ur Squamous Epith Cells (NS,R,O) Urine Bacteria (NS) 11/27/18 11/27/18 11/27/18 Range/Units 14:50 14:50 15:31 WBC (4.5-12.0) X10-3/uL RBC (3.23-5.20) x10(6)uL Hgb (11.5-15.5) g/dL Hct (30.0-51.3) % MCV (80-96) fL MCH (27.7-33.6) pg MCHC (32.2-35.4) g/dL RDW (11.5-15.5) % Plt Count (125-369) X10(3)uL MPV (7.4-10.4) fL Neut % (Auto) (46-82) % Lymph % (Auto) (13-37) % [place] % (Auto) (4-12) % Eos % (Auto) (1.0-5.0) % Baso % (Auto) (0-2) % Neut # (Auto) (1.6-8.3) # Lymph # (Auto) (0.6-5.0) # Creek # (Auto) (0.0-1.3) # Eos # (Auto) (0.0-0.8) # Baso # (Auto) (0.0-0.2) # ESR (0-20) mm/hr PT (8.7-11.1) INR (0.89-1.13) Sodium (135-145) mmol/L Potassium (3.5-5.3) mmol/L Chloride (100-110) mmol/L Carbon Dioxide (21-32) mmol/L BUN (7-18) mg/dL Creatinine (0.55-1.02) mg/dL Est Cr Clr Drug Dosing Estimated GFR (MDRD) (>60) BUN/Creatinine Ratio (9-20) Glucose (80-116) mg/dL Calcium (8.6-10.2) mg/dL Magnesium (1.8-2.5) mg/dL Total Bilirubin (0.1-1.3) mg/dL AST (5-25) IU/L ALT (12-36) U/L Alkaline Phosphatase (56-112) IU/L Troponin I < 0.017 L (<0.017-0.056) ng/mL C-Reactive Protein < 0.2 L (0.5-0.9) mg/dL NT-Pro-B Natriuret Pep 392 (<=450) pg/mL Total Protein (6.0-8.0) g/dL Albumin (3.2-4.6) g/dL Globulin g/dL Albumin/Globulin Ratio Urine Color Yellow (YELLOW) Urine Appearance Clear (CLEAR) Urine pH 6.0 (5.0-6.5) Ur Specific [place] 1.015 (1.010-1.025) Urine Protein Negative (NEGATIVE) mg/dL Urine Glucose (UA) Normal (NORMAL) mg/dL Urine Ketones Negative (NEGATIVE) mg/dL Urine Occult Blood Negative (NEGATIVE) Urine Nitrite Negative (NEGATIVE) Urine Bilirubin Negative (NEGATIVE) Urine Urobilinogen Normal (NEGATIVE) mg/dL Ur Leukocyte Esterase Negative (NEGATIVE) Urine RBC 0-5 (0-5) Urine WBC 0-5 (0-5) Ur Squamous Epith Cells Few H (NS,R,O) Urine Bacteria Few H (NS) - Radiology Interpretation Free Text/Narrative:: Chest x-ray showed evidence of COPD with scarring bilaterally and was unchanged from chest x-ray on 11/22/2018. Radiologist mentioned that he could not exclude bronchopneumonia within the areas of scarring but he did say that it was unchanged from 11/22/2018. The patient has no elevation in her white blood cell count or inflammatory markers, she has no cough with phlegm production and really no evidence of an acute pneumonia process. - Re-Assessments/Exams Free Text/Narrative Re-Assessment/Exam: 11/27/18 16:28: Patient continues with a low platelet count. Today it was 72, 000 and had previously been 76,000. This is relatively stable. Her other blood tests were unchanged. Her urine test again showed some evidence of infection. I did send the urine for culture. Based on the patient's last urine culture, it showed Escherichia coli that was pansensitive. I will place the patient on Augmentin 875 by mouth twice a day for 10 days at this point and she is to keep her follow-up appointment with the sergeant of officers and she should also follow-up next week with her primary doctor in regard to her urinary tract infection. Departure - Departure Time of Disposition: 16:35 Disposition: Home, Self-Care 01 Condition: Good (Stable) Clinical Impression: Thrombocytopenia, Weakness generalized Dyspnea Qualifiers: Dyspnea type: unspecified Qualified Code(s): R06.00 - Dyspnea, unspecified UTI (urinary tract infection) Qualifiers: Urinary tract infection type: site unspecified Hematuria presence: without hematuria Qualified Code(s): N39.0 - Urinary tract infection, site not specified - Discharge Information Prescriptions: Amoxicillin/Clavulanate K [Augmentin 875-125 MG] 1 tab PO BID 10 Days #20 tablet Instructions: Shortness of Breath, Adult, Olyv-mt-Hads, Weakness, [id number] , Urinary Tract Infection, Adult, [id number] Referrals: Jeremy Rosales MD [Primary Care Provider] - Forms: ED Department Discharge Additional Instructions: Your platelet count was still low but was about the same as it was previously. It was 72,000 today. Your other blood tests were unchanged. Your chest x-ray was unchanged from previous. Your urine does show some evidence of continued urinary tract infection and I suspect you have a urinary tract infection that needs further treatment. I am placing you on Augmentin to treat this. You should take probiotics or eat yogurt daily while you are on the antibiotics. Keep your appointment with a sergeant of officers next week. You should also follow-up with Dr. Rosales in regard to your urinary tract infection. Back to the emergency department for worse breathing, unrelenting vomiting, high fever or any other concerning sign or symptom. - My Orders Last 24 Hours: My Active Orders 11/27/18 14:26 EKG 12 Lead [EK] Routine 11/27/18 14:27 EKG Documentation Completion [RC] ASDIRECTED 11/27/18 16:14 CULTURE URINE [RM] Stat - Assessment/Plan Last 24 Hours: My Active Orders 11/27/18 14:26 EKG 12 Lead [EK] Routine 11/27/18 14:27 EKG Documentation Completion [RC] ASDIRECTED 11/27/18 16:14 CULTURE URINE [RM] Stat
--- NOTE | 2018-11-27 15:15 | CR ---
INDICATION: Shortness of breath. CHEST: An AP upright portable view of the chest was obtained 11/27/18 and compared with 11/22/18, revealing the heart to be grossly normal in size or at the upper limits of normal in size. The aorta is tortuous with calcification in the arch. The lungs appear to be somewhat hyperaerated. Heavy markings are noted in the right mid lung field, especially lower middle lung field, and to a lesser extent at the lung bases, which may be on the basis of fibrosis, although patchy bronchopneumonia, especially in the lower middle lung field on the right, cannot be excluded. Findings compatible with COPD are also suggested in that there is somewhat hyperaerated lung present. A moderate dextroconcave scoliosis of the lower lumbar spine is again noted. IMPRESSION: 1. No definite acute process but cannot exclude patchy bronchopneumonia in the right mid lung field, especially lower middle lung field, and also at the lung bases, especially at the left lung base. 2. ASHD. 3. Scoliosis. 4. Possible COPD - correlate clinically. Report was called to Dr. Claudio at 1506 hours on 11/27/18. MTDD
[2018-11-27 20:20] VITALS: BP 143/68; PULSE 68
== END 2018-11-27 16:45 | disposition home or self-care (01) ==
LOC: FB.ED 13:32
DX: N39.0 Urinary tract infection, site not specified (principal); B96.20 Unspecified Escherichia coli [E. coli] as the cause of diseases classified elsewhere; D69.6 Thrombocytopenia, unspecified; R06.00 Dyspnea, unspecified; R53.1 Weakness; I50.9 Heart failure, unspecified; E78.00 Pure hypercholesterolemia, unspecified; I25.2 Old myocardial infarction; Z88.6 Allergy status to analgesic agent; Z79.899 Other long term (current) drug therapy; Z86.73 Personal history of transient ischemic attack (TIA), and cerebral infarction without residual deficits
CPT/HCPCS: 36415; 71045; 80053; 81001; 83735; 83880; 84484; 85025; 85610; 85651; 86140; 87086; 87088; 87186; 93005; 93010; 99284; 99285-25

== ENCOUNTER 2018-12-17 13:08 | Emergency (ER) | payer MEDICARE, OTHER ==
--- NOTE | 2018-12-17 13:33 | EDM.PDOC ---
ED HPI GENERAL MEDICAL PROBLEM - General Stated Complaint: SOB NUMBNESS IN BOTH LEGS Time Seen by Provider: 12/17/18 13:08 Source of Information: Reports: Patient, Family History Limitations: Reports: Physical Impairment, Other (poor historian) - History of Present Illness INITIAL COMMENTS - FREE TEXT/NARRATIVE: 88 y.o.w.f with a H/O CVA, came with her family to the ED due to numbness and tingling at her lower extremities off/on for several weeks. Pt was seen for same at [place] and had multiple tests done and nobody could tell her what the cause of it is. This morning she was not able to walk initially, but could walk in the ED with and without walker. no N/V/D no Dizziness, no DP, no SOB . Pt told to staff several times, she is here for the tingling feet here only. BP 187/78 RR 18 Pulse ox 99 Pulse 63 Temp 36.8 Onset Date: 12/16/18 Onset Time: 07:00 Duration: Hour(s): Location: Reports: Lower Extremity, Left, Lower Extremity, Right Quality: Reports: Other (tingling) Severity: Mild Improves with: Reports: None Worsens with: Reports: None Context: Reports: Other Associated Symptoms: Reports: Other (H/O Left sided weakness due to an CVA in the past) - Related Data Allergies Allergy/AdvReac Type Severity Reaction Status Date / Time NSAIDS (Non-Steroidal Allergy UNKNOWN Verified 11/27/18 20:09 Anti-Inflamma Home Meds: Home Meds Calcium Carbonate/Vitamin D3 [Caltrate 600+D 1500 MG-400 Units] 1 tab PO DAILY 07/29/13 [History] Multivitamin [Multivitamins] 1 cap PO DAILY 07/29/13 [History] atorvaSTATin [Lipitor] 40 mg PO DAILY 07/29/13 [History] Nitroglycerin [Nitrostat] 0.4 mg SL ASDIRECTED PRN 02/06/15 [History] Oxybutynin 5 mg PO BID 10/23/15 [History] Acetaminophen [Tylenol Arthritis] 1,300 mg PO TID 10/03/18 [History] [place]-3 Fatty Acids/Fish Oil [[place]-3 Fish Oil 1,000 mg Sfgl] 1,000 mg PO DAILY 10/03/18 [History] Isosorbide Dinitrate 10 mg PO BID 11/22/18 [History] hydrOXYzine pamoate [Vistaril] 25 mg PO TID PRN 11/22/18 [History] Metoprolol Succinate [Toprol XL 50mg] 50 mg PO DAILY 11/23/18 [History] Past Medical History HEENT History: Reports: Cataract Other HEENT History: Cataract surgery 2015 Cardiovascular History: Reports: Angina, Blood Clots/VTE/DVT, CAD, Heart Failure , High Cholesterol, [place], Prior Cardiac Arrest, PTCA, Stents Respiratory History: Reports: None Gastrointestinal History: Reports: GERD Genitourinary History: Reports: UTI, Recurrent Other Genitourinary History: over active bladder history of UTI 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 Neurological History: Reports: CVA Hematologic History: Reports: Other (See Below) (Recently with thrombocytopenia of unclear etiology) Immunologic History: Reports: None - Infectious Disease History Infectious Disease History: Reports: Chicken Pox, Measles, Scarlet Fever - Past Surgical History HEENT Surgical History: Reports: Cataract Surgery Cardiovascular Surgical History: Reports: Coronary Artery Stent GI Surgical History: Reports: Cholecystectomy Female Surgical History: Reports: Hysterectomy Musculoskeletal Surgical History: Reports: Knee Replacement Oncologic Surgical History: Reports: None Dermatological Surgical History: Reports: None - History Comment History Comment: History reviewed Social & Family History - Family History Family Medical History: Noncontributory HEENT: Reports: None Cardiac: Reports: None Respiratory: Reports: None GI: Reports: None : Reports: None Psychiatric: Reports: None Endocrine/Metabolic: Reports: None Hematologic: Reports: None Oncologic: Reports: Pancreatic, Other (See Below) Other Oncologic Family History: Mother. - Caffeine Use Caffeine Use: Reports: Coffee Other Caffeine Use: 3 cups a day - Living Situation & Occupation Living situation: Reports: Assisted Living ED [facility] - Review of Systems Review Of Systems: See Below Constitutional: Reports: No Symptoms HEENT: Reports: No Symptoms Respiratory: Reports: No Symptoms Cardiovascular: Reports: No Symptoms Endocrine: Reports: No Symptoms GI/Abdominal: Reports: No Symptoms : Reports: No Symptoms Musculoskeletal: Reports: No Symptoms Skin: Reports: No Symptoms Neurological: Reports: Paresthesia (lower extremities) Psychiatric: Reports: No Symptoms Hematologic/Lymphatic: Reports: No Symptoms Immunologic: Reports: No Symptoms ED EXAM, NEURO - Physical Exam Exam: See Below Exam Limited By: Physical Impairment General Appearance: Alert, WD/WN, Mild Distress, Thin Eye Exam: Bilateral Eye: Normal Inspection Ears: Normal External Exam, Normal Canal Nose: Normal Inspection, Normal Mucosa Throat/Mouth: Normal Lips, Normal Voice, No Airway Compromise Head Exam: Atraumatic, Normocephalic Neck: Normal Inspection, Supple Respiratory/Chest: No Respiratory Distress, Lungs Clear, Normal Breath Sounds Cardiovascular: Normal Peripheral Pulses, Regular Rate, Rhythm, No Edema, No Gallop GI/Abdominal: Normal Bowel Sounds, Soft, Non-Tender, No Organomegaly, Pelvis Stable (Female) Exam: Deferred Rectal (Female) Exam: Deferred Neurological: Alert, Normal Mood/Affect, Normal Dorsiflexion, CN II-XII Intact, Abnormal Gait (due to a CVA inthe past) Back Exam: Normal Inspection, Full Range of Motion Extremities: Normal Inspection, Normal Range of Motion, Non-Tender, No Pedal Edema, Normal Capillary Refill, Other (varicous veins) Psychiatric: Normal Affect, Normal Mood Skin Exam: Warm, Dry, Intact, Normal Color, No Rash EKG INTERPRETATION EKG Date: 12/17/18 Time: 13:10 Rhythm: NSR Rate (Beats/Min): 67 [place]: Normal P-Wave: Present QRS: LBBB ST-T: Normal QT: Normal Comparison: NA - No Prior EKG Course - Vital Signs Text/Narrative:: 88 y.o.w.f with a H/O CVA, came with her family to the ED due to numbness and tingling at her lower extremities off/on for several weeks. Pt was seen for same at [place] and had multiple tests done and nobody could tell her what the cause of it is. This morning she was not able to walk initially, but could walk in the ED with and without walker. no N/V/D no Dizziness, no DP, no SOB . Pt told to staff several times, she is here for the tingling feet here only. BP 187/78 RR 18 Pulse ox 99 Pulse 63 Temp 36.8 PE; WNWD WF with lower extr. paresthesia Labs: CBC, BMP nl except Na was 129 A1C was 5.4 UA neg. Imaging: Not indicated Impression: Paresthesia lower extremities Tx: None 2.30 pm consultation: Dr. Barrow, Neurologist, [facility], MD{ Electrolytes , serum electrophoresis, Gly A1C and Neuro F/U Reexam: Pt was able to walk independently. requested to be discharged Plan: D/C with instructions Last Recorded V/S: Last Vital Signs Temp 36.3 C 12/17/18 13:08 Pulse 64 12/17/18 14:41 Resp 18 12/17/18 14:41 BP 162/77 H 12/17/18 14:41 Pulse Ox 98 12/17/18 14:41 - Orders/Labs/Meds Orders: Active Orders 24 hr Category Date Time Status EKG Documentation Completion [RC] ASDIRECTED Care 12/17/18 13:32 Active PROTEIN ELEC + INTERP, SERUM Routine Lab 12/17/18 13:20 Received EKG 12 Lead [EK] Routine Ther 12/17/18 13:32 Ordered Labs: Laboratory Tests 12/17/18 12/17/18 12/17/18 Range/Units 13:20 13:20 13:20 WBC 5.9 (4.5-12.0) X10-3/uL RBC 4.23 (3.23-5.20) x10(6)uL Hgb 13.6 (11.5-15.5) g/dL Hct 40.2 (30.0-51.3) % MCV 95.1 (80-96) fL MCH 32.3 (27.7-33.6) pg MCHC 33.9 (32.2-35.4) g/dL RDW 12.0 (11.5-15.5) % Plt Count 60 L (125-369) X10(3)uL MPV 8.4 (7.4-10.4) fL Neut % (Auto) 66.8 (46-82) % Lymph % (Auto) 18.6 (13-37) % [place] % (Auto) 11.4 (4-12) % Eos % (Auto) 3 (1.0-5.0) % Baso % (Auto) 1 (0-2) % Neut # (Auto) 3.9 (1.6-8.3) # Lymph # (Auto) 1.1 (0.6-5.0) # [place] # (Auto) 0.7 (0.0-1.3) # Eos # (Auto) 0.2 (0.0-0.8) # Baso # (Auto) 0.0 (0.0-0.2) # PT 10.0 (8.7-11.1) INR 1.03 (0.89-1.13) Sodium 129 L (135-145) mmol/L Potassium 4.8 (3.5-5.3) mmol/L Chloride 95 L (100-110) mmol/L Carbon Dioxide 26 (21-32) mmol/L BUN 9 (7-18) mg/dL Creatinine 0.7 (0.55-1.02) mg/dL Est Cr Clr Drug Dosing 45.95 mL/min Estimated GFR (MDRD) > 60 (>60) BUN/Creatinine Ratio 12.9 (9-20) Glucose 120 H (80-116) mg/dL Hemoglobin A1c (4.5-6.2) % Calcium 8.8 (8.6-10.2) mg/dL Magnesium (1.8-2.5) mg/dL Creatine Kinase (60-160) IU/L Troponin I (<0.017-0.056) ng/mL Vitamin B12 (193-986) pg/mL Urine Color (YELLOW) Urine Appearance (CLEAR) Urine pH (5.0-6.5) Ur Specific [place] (1.010-1.025) Urine Protein (NEGATIVE) mg/dL Urine Glucose (UA) (NORMAL) mg/dL Urine Ketones (NEGATIVE) mg/dL Urine Occult Blood (NEGATIVE) Urine Nitrite (NEGATIVE) Urine Bilirubin (NEGATIVE) Urine Urobilinogen (NEGATIVE) mg/dL Ur Leukocyte Esterase (NEGATIVE) Urine WBC (0-5) Ur Squamous Epith Cells (NS,R,O) Urine Bacteria (NS) 12/17/18 12/17/18 12/17/18 Range/Units 13:20 13:20 13:20 WBC (4.5-12.0) X10-3/uL RBC (3.23-5.20) x10(6)uL Hgb (11.5-15.5) g/dL Hct (30.0-51.3) % MCV (80-96) fL MCH (27.7-33.6) pg MCHC (32.2-35.4) g/dL RDW (11.5-15.5) % Plt Count (125-369) X10(3)uL MPV (7.4-10.4) fL Neut % (Auto) (46-82) % Lymph % (Auto) (13-37) % [place] % (Auto) (4-12) % Eos % (Auto) (1.0-5.0) % Baso % (Auto) (0-2) % Neut # (Auto) (1.6-8.3) # Lymph # (Auto) (0.6-5.0) # [place] # (Auto) (0.0-1.3) # Eos # (Auto) (0.0-0.8) # Baso # (Auto) (0.0-0.2) # PT (8.7-11.1) INR (0.89-1.13) Sodium (135-145) mmol/L Potassium (3.5-5.3) mmol/L Chloride (100-110) mmol/L Carbon Dioxide (21-32) mmol/L BUN (7-18) mg/dL Creatinine (0.55-1.02) mg/dL Est Cr Clr Drug Dosing mL/min Estimated GFR (MDRD) (>60) BUN/Creatinine Ratio (9-20) Glucose (80-116) mg/dL Hemoglobin A1c (4.5-6.2) % Calcium (8.6-10.2) mg/dL Magnesium 1.9 (1.8-2.5) mg/dL Creatine Kinase 52 L (60-160) IU/L Troponin I < 0.017 L (<0.017-0.056) ng/mL Vitamin B12 1449 H (193-986) pg/mL Urine Color (YELLOW) Urine Appearance (CLEAR) Urine pH (5.0-6.5) Ur Specific [place] (1.010-1.025) Urine Protein (NEGATIVE) mg/dL Urine Glucose (UA) (NORMAL) mg/dL Urine Ketones (NEGATIVE) mg/dL Urine Occult Blood (NEGATIVE) Urine Nitrite (NEGATIVE) Urine Bilirubin (NEGATIVE) Urine Urobilinogen (NEGATIVE) mg/dL Ur Leukocyte Esterase (NEGATIVE) Urine WBC (0-5) Ur Squamous Epith Cells (NS,R,O) Urine Bacteria (NS) 12/17/18 12/17/18 Range/Units 13:20 14:00 WBC (4.5-12.0) X10-3/uL RBC (3.23-5.20) x10(6)uL Hgb (11.5-15.5) g/dL Hct (30.0-51.3) % MCV (80-96) fL MCH (27.7-33.6) pg MCHC (32.2-35.4) g/dL RDW (11.5-15.5) % Plt Count (125-369) X10(3)uL MPV (7.4-10.4) fL Neut % (Auto) (46-82) % Lymph % (Auto) (13-37) % [place] % (Auto) (4-12) % Eos % (Auto) (1.0-5.0) % Baso % (Auto) (0-2) % Neut # (Auto) (1.6-8.3) # Lymph # (Auto) (0.6-5.0) # [place] # (Auto) (0.0-1.3) # Eos # (Auto) (0.0-0.8) # Baso # (Auto) (0.0-0.2) # PT (8.7-11.1) INR (0.89-1.13) Sodium (135-145) mmol/L Potassium (3.5-5.3) mmol/L Chloride (100-110) mmol/L Carbon Dioxide (21-32) mmol/L BUN (7-18) mg/dL Creatinine (0.55-1.02) mg/dL Est Cr Clr Drug Dosing mL/min Estimated GFR (MDRD) (>60) BUN/Creatinine Ratio (9-20) Glucose (80-116) mg/dL Hemoglobin A1c 5.4 (4.5-6.2) % Calcium (8.6-10.2) mg/dL Magnesium (1.8-2.5) mg/dL Creatine Kinase (60-160) IU/L Troponin I (<0.017-0.056) ng/mL Vitamin B12 (193-986) pg/mL Urine Color Yellow (YELLOW) Urine Appearance Clear (CLEAR) Urine pH 6.5 (5.0-6.5) Ur Specific [place] 1.005 L (1.010-1.025) Urine Protein Negative (NEGATIVE) mg/dL Urine Glucose (UA) Normal (NORMAL) mg/dL Urine Ketones Negative (NEGATIVE) mg/dL Urine Occult Blood Negative (NEGATIVE) Urine Nitrite Negative (NEGATIVE) Urine Bilirubin Negative (NEGATIVE) Urine Urobilinogen Normal (NEGATIVE) mg/dL Ur Leukocyte Esterase Negative (NEGATIVE) Urine WBC 0-5 (0-5) Ur Squamous Epith Cells Occasional (NS,R,O) Urine Bacteria Few H (NS) Departure - Departure Time of Disposition: 15:07 Disposition: Home, Self-Care 01 Condition: Good Clinical Impression: Paresthesia of bilateral legs, Paresthesia of both feet, Hyponatremia - Discharge Information Instructions: Paresthesia Referrals: Jeremy Rosales MD [Primary Care Provider] - Forms: ED Department Discharge Additional Instructions: Please follow up with your regular MD in order to get EMG study done of your lower extremities and make a Neurology appointment with [facility]. Please come back if your symptoms get worse acutely - My Orders Last 24 Hours: My Active Orders 12/17/18 13:20 PROTEIN ELEC + INTERP, SERUM Routine 12/17/18 13:32 EKG Documentation Completion [RC] ASDIRECTED EKG 12 Lead [EK] Routine - Assessment/Plan Last 24 Hours: My Active Orders 12/17/18 13:20 PROTEIN ELEC + INTERP, SERUM Routine 12/17/18 13:32 EKG Documentation Completion [RC] ASDIRECTED EKG 12 Lead [EK] Routine
[2018-12-17 14:41] VITALS: BP 162/77; PULSE 64
[2018-12-17 15:20] LABS: HEMOGLOBIN A1C 5.4 % (4.5-6.2)
[2018-12-22 15:09] LABS: A/G RATIO 1.1 (0.7-1.7); ALBUMIN 3.8 g/dL (2.9-4.4); ALPHA-1-GLOBULIN 0.3 g/dL (0.0-0.4); ALPHA-2-GLOBULIN 0.9 g/dL (0.4-1.0); GAMMA GLOBULIN 1.3 g/dL (0.4-1.8); GLOBULIN, TOTAL 3.4 g/dL (2.2-3.9); M-SPIKE Not Observed g/dL (Not Observed); PROTEIN, TOTAL, SERUM 7.2 g/dL (6.0-8.5)
== END 2018-12-17 15:21 | disposition home or self-care (01) ==
LOC: FB.ED 13:08
DX: R20.2 Paresthesia of skin (principal); K21.9 Gastro-esophageal reflux disease without esophagitis; I50.9 Heart failure, unspecified; E78.00 Pure hypercholesterolemia, unspecified; Z79.899 Other long term (current) drug therapy; Z86.73 Personal history of transient ischemic attack (TIA), and cerebral infarction without residual deficits; Z88.8 Allergy status to other drugs, medicaments and biological substances
CPT/HCPCS: 36415; 80048; 81001; 82550; 82607; 83036; 83735; 84165; 84484; 85025; 85610; 93005; 93010; 99284; 99284-25

== ENCOUNTER 2019-01-13 01:14 | Emergency (ER) | payer MEDICARE, OTHER ==
[2019-01-13 01:24] VITALS: BP 169/69; PULSE 72
--- NOTE | 2019-01-13 01:38 | EDM.PDOC ---
ED HPI GENERAL MEDICAL PROBLEM - General Chief Complaint: Back Pain or Injury Stated Complaint: FALL Time Seen by Provider: 01/13/19 01:20 Source of Information: Reports: Patient, Family, Old Records, RN History Limitations: Reports: No Limitations - History of Present Illness INITIAL COMMENTS - FREE TEXT/NARRATIVE: 88 yo female lost her balance getting up to go to the bathroom tonight and fell backwards onto her buttocks. This was about 45 min ago. She took acetaminophen and had her son bring her in for eval. Fell onto carpet. Says she has minimal pain now and no new leg numbness. 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 low back tail bone Pain Score (Numeric/FACES): 4 - Related Data Allergies Allergy/AdvReac Type Severity Reaction Status Date / Time NSAIDS (Non-Steroidal Allergy UNKNOWN Verified 01/13/19 01:24 Anti-Inflamma Home Meds: Home Meds Calcium Carbonate/Vitamin D3 [Caltrate 600+D 1500 MG-400 Units] 1 tab PO DAILY 07/29/13 [History] Multivitamin [Multivitamins] 1 cap PO DAILY 07/29/13 [History] atorvaSTATin [Lipitor] 40 mg PO DAILY 07/29/13 [History] Nitroglycerin [Nitrostat] 0.4 mg SL ASDIRECTED PRN 02/06/15 [History] Oxybutynin 5 mg PO BID 10/23/15 [History] Acetaminophen [Tylenol Arthritis] 1,300 mg PO TID 10/03/18 [History] [place]-3 Fatty Acids/Fish Oil [[place]-3 Fish Oil 1,000 mg Sfgl] 1,000 mg PO DAILY 10/03/18 [History] Isosorbide Dinitrate 10 mg PO BID 11/22/18 [History] hydrOXYzine pamoate [Vistaril] 25 mg PO TID PRN 11/22/18 [History] Metoprolol Succinate [Toprol XL 50mg] 50 mg PO DAILY 11/23/18 [History] Clopidogrel Bisulfate [Clopidogrel] 75 mg PO DAILY 01/13/19 [History] Past Medical History HEENT History: Reports: Cataract Other HEENT History: Cataract surgery 2015 Cardiovascular History: Reports: Angina, Blood Clots/VTE/DVT, CAD, Heart Failure , High Cholesterol, [place], Prior Cardiac Arrest, PTCA, Stents Other Cardiovascular History: stents x 2 Respiratory History: Reports: None Gastrointestinal History: Reports: GERD Genitourinary History: Reports: UTI, Recurrent Other Genitourinary History: over active bladder history of UTI 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 Neurological History: Reports: CVA Other Neuro History: hx CVA with L sided weakness Psychiatric History: Reports: Anxiety, Depression Hematologic History: Reports: Other (See Below) (Recently with thrombocytopenia of unclear etiology) Immunologic History: Reports: None - Infectious Disease History Infectious Disease History: Reports: Chicken Pox, Measles, Scarlet Fever - Past Surgical History HEENT Surgical History: Reports: Cataract Surgery Cardiovascular Surgical History: Reports: Coronary Artery Stent GI Surgical History: Reports: Cholecystectomy Female Surgical History: Reports: Hysterectomy Musculoskeletal Surgical History: Reports: Knee Replacement Oncologic Surgical History: Reports: None Dermatological Surgical History: Reports: None - History Comment History Comment: History reviewed Social & Family History - Family History Family Medical History: Noncontributory HEENT: Reports: None Cardiac: Reports: None Respiratory: Reports: None GI: Reports: None : Reports: None Psychiatric: Reports: None Endocrine/Metabolic: Reports: None Hematologic: Reports: None Oncologic: Reports: Pancreatic, Other (See Below) Other Oncologic Family History: Mother. - Caffeine Use Caffeine Use: Reports: Coffee Other Caffeine Use: 3 cups a day - Living Situation & Occupation Living situation: Reports: Assisted Living ED ROS GENERAL - Review of Systems Review Of Systems: See Below Constitutional: Reports: No Symptoms HEENT: Reports: No Symptoms Respiratory: Reports: No Symptoms Cardiovascular: Reports: No Symptoms GI/Abdominal: Reports: No Symptoms : Reports: No Symptoms Musculoskeletal: Reports: Back Pain (chronic, not worse than usual) Skin: Reports: No Symptoms Neurological: Reports: Numbness (Has mild bilateral lower extremity neuropathy) Psychiatric: Reports: Anxiety ED EXAM,LOWER BACK PAIN/INJURY - Physical Exam Exam: See Below Exam Limited By: No Limitations General Appearance: Alert, WD/WN, No Apparent Distress Eye Exam: Bilateral Eye: Normal Inspection Ears: Normal External Exam, Normal Canal, Hearing Grossly Normal Nose: Normal Inspection Throat/Mouth: Normal Inspection, Normal Lips, Normal Oropharynx, Normal Voice, No Airway Compromise Head: Atraumatic, Normocephalic Neck: Normal Inspection Respiratory/Chest: No Respiratory Distress, Lungs Clear, Normal Breath Sounds, No Accessory Muscle Use Cardiovascular: Regular Rate, Rhythm Back Exam: Normal Inspection, Other (no coccyx tenderness with palpation). No: Decreased Range of Motion, Muscle Spasm, Paraspinal Tenderness, Vertebral Tenderness Extremities: Normal Inspection, Normal Range of Motion, Non-Tender, No Pedal Edema Neurological: Alert, Normal Mood/Affect, Normal Dorsiflexion, CN II-XII Intact, No Motor/Sensory Deficits, Oriented x 3 Psychiatric: Normal Affect, Anxious Skin Exam: Warm, Dry, Intact, Normal Color, No Rash Course - Vital Signs Last Recorded V/S: Last Vital Signs Temp 36.3 C 01/13/19 01:15 Pulse 72 01/13/19 01:15 Resp 16 01/13/19 01:15 BP 169/69 H 01/13/19 01:15 Pulse Ox 97 01/13/19 01:15 Departure - Departure Time of Disposition: 01:38 Disposition: Home, Self-Care 01 Condition: Good Clinical Impression: Fall in elderly patient - Discharge Information *PRESCRIPTION DRUG MONITORING PROGRAM REVIEWED*: No *COPY OF PRESCRIPTION DRUG MONITORING REPORT IN PATIENT JANNETH: No Instructions: Fall Prevention in the Home, Adult, [id number] Referrals: Jeremy Rosales MD [Primary Care Provider] - Additional Instructions: Use your walker even for traveling short distances to reduce your risk of falling. Take acetaminophen as needed. Recheck as needed.
== END 2019-01-13 01:40 | disposition home or self-care (01) ==
LOC: FB.ED 01:14
DX: M53.3 Sacrococcygeal disorders, not elsewhere classified (principal); F41.9 Anxiety disorder, unspecified; F32.9 Major depressive disorder, single episode, unspecified; I50.9 Heart failure, unspecified; I25.2 Old myocardial infarction; Z90.710 Acquired absence of both cervix and uterus; Z90.49 Acquired absence of other specified parts of digestive tract; Z79.899 Other long term (current) drug therapy; Z88.6 Allergy status to analgesic agent; W19.XXXA Unspecified fall, initial encounter
CPT/HCPCS: 99282